=== PATIENT | female | born 1955 | race Caucasian/White ===

== ENCOUNTER 2023-10-15 11:07 | Outpatient (OUT) | payer OTHER, SELFPAY ==
[2023-10-15 12:08] LABS: Estimated Average Glucose 111 mg/dL; Glycohemoglobin A1C 5.5 % (4.5-6.2)
[2023-10-15 12:12] LABS: Basophils Absolute Auto 0.1 10^3/uL (0.0-0.1); Basophils Percent Auto 0.7 % (0.2-2.0); Eosinophils Absolute Auto 0.1 10^3/uL (0.0-0.7); Hematocrit 48.2 % (36.0-48.0); Hemoglobin 15.3 g/dL (12.0-16.0); Immature Granulocytes Abs Auto 0.02 10^3/uL (0.00-0.03); Immature Granulocytes Pct Auto 0.3 % (0.0-0.5); Lymphocytes Absolute Auto 2.4 10^3/uL (1.2-3.8); Lymphocytes Percent Auto 33.9 % (20.5-60.0); Mean Corpuscular HGB Conc 31.7 g/dL (29.9-35.2); Mean Corpuscular Hemoglobin 31.3 pg (26.7-34.0); Mean Corpuscular Volume 98.6 fL (81.0-99.0); Mean Platelet Volume 9.1 fL (9.5-13.5); Monocytes Absolute Auto 0.6 10^3/uL (0.3-0.8); Monocytes Percent Auto 8.4 % (1.7-12.0); Neutrophils Absolute Auto 3.9 10^3/uL (1.4-6.5); Neutrophils Percent Auto 54.7 % (43.0-75.0); Platelet Count 256 10^3/uL (150-450); Red Blood Count 4.89 10^6/uL (4.20-5.40); White Blood Count 7.1 10^3/uL (4.0-11.0)
[2023-10-15 12:20] LABS: Alanine Aminotransferase 31 U/L (14-59); Albumin Level 3.9 g/dL (3.4-5.0); Alkaline Phosphatase 60 U/L (46-116); Anion Gap 11.9; Aspartate Amino Transferase 16 U/L (15-37); BUN Creatinine Ratio 16.9; Bilirubin Total 0.5 mg/dL (0.2-1.0); Calcium 9.7 mg/dL (8.5-10.1); Carbon Dioxide 29.5 mmol/L (21.0-32.0); Chloride 104 mmol/L (98-107); Chol HDL Ratio 3.4; Cholesterol 187 mg/dL (<=200); Estimated GFR (African America >60 (>=60); Estimated GFR (Non-African Ame >60 (>=60); Free T3 2.96 pg/mL (2.18-3.98); Globulin 4.1 g/dL; Glucose 95 mg/dL (74-106); HDL Cholesterol 55 mg/dL (40-60); Potassium 4.4 mmol/L (3.5-5.1); Sodium 141 mmol/L (136-145); Thyroid Stimulating Hormone 1.818 uIU/mL (0.358-3.740); Triglycerides 168 mg/dL (<=150); VLDL CHOLESTEROL 33.6 mg/dL
== END 2023-10-15 11:08 | disposition home or self-care (01) ==
LOC: LAB 11:10
PROVIDERS: PCP Family Medicine; Visit Provider Family Medicine
DX: Z00.00 Encounter for general adult medical examination without abnormal findings (principal)
CPT/HCPCS: 36415; 80053; 80061; 82306; 83036; 83540; 84436; 84443; 84481; 85025

== ENCOUNTER 2023-10-22 12:14 | Outpatient (REF) | payer OTHER, SELFPAY ==
--- OUTSIDE RECORDS SUMMARY | 2023-10-22 12:24 | XMS_ITS | CCD ---
Author Name Unknown Address [address] [place] [address] Organization [facility] Care Team Providers Care Observer [employer] Name Role Phone JOSELO, DR MACK Admitting Unavailable HOY, DR MACK Attending Unavailable HOY, DR MACK Primary Care Unavailable HOY, DR MACK Consulting Unavailable SHREYAS, JONG Admitting Unavailable SHREYAS, JONG Attending Unavailable HOY, DR MACK Primary Care Unavailable HOY, DR MACK Admitting Unavailable HOY, DR MACK Attending Unavailable HOY, DR MACK Primary Care Unavailable HOY, DR MACK Consulting Unavailable HOY, DR MACK Primary Care Unavailable SHREYAS, JONG Admitting Unavailable SHREYAS, JONG Attending Unavailable WEST, DR JEWELS Angel Consulting Unavailable SHREYAS, JONG Consulting Unavailable CHADY, DR MACK Admitting Unavailable HOY, DR MACK Attending Unavailable HOY, DR MACK Primary Care Unavailable HOY, DR MACK Consulting Unavailable ZIEBER, DR AKBAR Sheikh Consulting Unavailable Problems Active Problems Problem Classification Problem Date Documented Da te Episodic/Chronic Other connective tissue disease (4 sources) Pain in left foot; Translations: [PAIN IN LEFT FOOT] Onset: 07-02-2022 Episodic Past or Other Problems Problem Classification Problem Date Documented Da te Episodic/Chronic Deficiency and other anemia (1 source) Anemia, unspecified; Translations: [ANEMIA UNSPECIFIED] Onset: 03-27-2022 Episodic Diabetes mellitus without complication (1 source) Other abnormal glucose; Translations: [OTHER ABNORMAL GLUCOSE] Onset: 03-27-2022 Episodic Other lower respiratory disease (4 sources) Pleurodynia; Translations: [PLEURODYNIA] Onset: 02-20-2022 Episodic Other screening for suspected conditions (not mental disorders or infectious disease) (1 source) Encounter for screening for malignant neoplasm of rectum; Translations: [ENC SCREEN MALIG NEOPLASM RECTUM] Onset: 03-29-2022 Episodic Results Test Name Value Interpretation Reference Range Facil ity OCC BLD IMMUNO SCREENon -0 OCCULT BLOOD Negative Normal NEGATIVE [facility] Comment on above: Performed By: #### O BSCRN #### [facility] [address] [place] [address] Dr. Enrrique Torrez CBC AUTO DIFFon 03-24-2022 BASO # 0.1 103/ul Normal 0.0-0.1 [facility] Comment on above: Performed By: #### C BC #### [facility] [address] [place] [address] Dr. Enrrique Torrez Basophils/100 WBC (Bld) 0.7 % Normal 0.2-2.0 [facility] Comment on above: Performed By: #### C BC #### [facility] [address] [place] [address] Dr. Enrrique Torrez EO # 0.2 103/ul Normal 0.0-0.7 [facility] Comment on above: Performed By: #### C BC #### [facility] [address] [place] [address] Dr. Enrrique Torrez Eosinophils/100 WBC (Bld) 2.2 % Normal 0.9-7.0 [facility] Comment on above: Performed By: #### C BC #### [facility] [address] [place] [address] Dr. Enrrique Torrez Erythrocyte distribution width (RBC) [Ratio] 13.2 % Normal 11.0-15.0 [facility] Comment on above: Performed By: #### C BC #### [facility] [address] [place] [address] Dr. Enrrique Torrez Hematocrit (Bld) [Volume fraction] 41.2 % Normal 36.0-48.0 [facility] Comment on above: Performed By: #### C BC #### [facility] [address] [place] [address] Dr. Enrrique Torrez Hemoglobin (Bld) [Mass/Vol] 13.4 g/dL Normal 12.0-16.0 [facility] Comment on above: Performed By: #### C BC #### [facility] [address] [place] [address] Dr. Enrrique Torrez IG # 0.02 10e3/ul Normal 0.00-0.03 [facility] Comment on above: Performed By: #### C BC #### [facility] [address] [place] [address] Dr. Enrrique Torrez IG % 0.3 % Normal 0.0-0.5 [facility] Comment on above: Performed By: #### C BC #### [facility] [address] [place] [address] Dr. Enrrique Torrez LYMPH # 2.0 103/ul Normal 1.2-3.8 [facility] Comment on above: Performed By: #### C BC #### [facility] [address] [place] [address] Dr. Enrrique Torrez Lymphocytes/100 WBC (Bld) 29.4 % Normal 20.5-60.0 [facility] Comment on above: Performed By: #### C BC #### [facility] [address] [place] [address] Dr. Enrrique Torrez MANUAL DIFF REQ NO Normal [facility] Comment on above: Performed By: #### C BC #### [facility] [address] [place] [address] Dr. Enrrique Torrez MCH (RBC) [Entitic mass] 31.9 pg Normal 26.7-34.0 [facility] Comment on above: Performed By: #### C BC #### [facility] [address] [place] [address] Dr. Enrrique Torrez MCHC (RBC) [Mass/Vol] 32.5 g/dL Normal 29.9-35.2 [facility] Comment on above: Performed By: #### C BC #### [facility] [address] [place] [address] Dr. Enrrique Torrez MCV (RBC) [Entitic vol] 98.1 fL Normal 81.0-99.0 [facility] Comment on above: Performed By: #### C BC #### [facility] [address] [place] [address] Dr. Enrrique Torrez MONO # 0.6 103/ul Normal 0.3-0.8 [facility] Comment on above: Performed By: #### C BC #### [facility] [address] [place] [address] Dr. Enrrique Torrez Monocytes/100 WBC (Bld) 9.1 % Normal 1.7-12.0 [facility] Comment on above: Performed By: #### C BC #### [facility] [address] [place] [address] Dr. Enrrique Torrez NEUT # 4.0 103/ul Normal 1.4-6.5 [facility] Comment on above: Performed By: #### C BC #### [facility] [address] [place] [address] Dr. Enrrique Torrez Neutrophils/100 WBC (Bld) 58.3 % Normal 43.0-75.0 [facility] Comment on above: Performed By: #### C BC #### [facility] [address] [place] [address] Dr. Enrrique Torrez Platelet mean volume (Bld) [Entitic vol] 8.7 fL Critically low 9.5-13.5 [facility] Comment on above: Performed By: #### C BC #### [facility] [address] [place] [address] Dr. Enrrique Torrez PLT 285 103/ul Normal 150-450 [facility] Comment on above: Performed By: #### C BC #### [facility] [address] [place] [address] Dr. Enrrique Torrez RBC 4.20 106/ul Normal 4.20-5.40 [facility] Comment on above: Performed By: #### C BC #### [facility] [address] [place] [address] Dr. Enrrique Torrez WBC 6.8 103/ul Normal 4.0-11.0 [facility] Comment on above: Performed By: #### C BC #### [facility] [address] [place] [address] Dr. Enrrique Torrez FREE THYROXINE INDEX T7on FTI 2.98 Normal 1.30-4.50 [facility] Comment on above: Performed By: #### L IPID, TSH, CMP, T7 #### [facility] [address] [address] [address] Enrrique Torrez T3U 32.0 % Normal 30.0-39.0 [facility] Comment on above: Performed By: #### L IPID, TSH, CMP, T7 #### [facility] [address] [address] [address] Enrrique Torrez T4 [Mass/Vol] 9.30 ug/dL Normal 4.80-13.90 [facility] Comment on above: Performed By: #### L IPID, TSH, CMP, T7 #### [facility] [address] [place] [address] Dr. Enrrique Torrez GLYCOHEMOGLOBIN A1Con 2021 ADA RECOMMENDATION SEE BELOW Normal [facility] Comment on above: Result Comment: ADA RECOMMENDED LIMIT 4.0 - 6.0 ADA THERAPEUTIC TARGET < 7.0 ACTION SUGGESTED > 7.0 Performed By: #### A 1C #### [facility] [address] [address] [address] Enrrique Torrez Glucose [Mass/Vol] 120 mg/dL Normal [facility] Comment on above: Performed By: #### A 1C #### [facility] [address] [place] [address] Dr. Enrrique Torrez HbA1c (Bld) [Mass fraction] 5.8 % Normal 4.5-6.2 [facility] Comment on above: Performed By: #### A 1C #### [facility] [address] [place] [address] Dr. Enrrique Torrez IRONon 03-24-2022 Iron [Mass/Vol] 119.0 ug/dL Normal 50.0-170.0 [facility] Comment on above: Performed By: #### I DARIA #### [facility] [address] [place] [address] Dr. Enrrique Torrez LIPID PROFILEon 03-24-2022 CHOL-HDL RATIO NORM SEE BELOW Normal [facility] Comment on above: Result Comment: 3.3 - 4.4 LOW RISK 4.4 - 7.1 AVERAGE RISK 7.1 - 11.0 MODERATE RISK >11.0 HIGH RISK Performed By: #### L IPID, TSH, CMP, T7 #### [facility] [address] [address] [address] Enrrique Torrez Cholesterol [Mass/Vol] 165 mg/dL Normal <=200 [facility] Comment on above: Performed By: #### L IPID, TSH, CMP, T7 #### [facility] [address] [address] [address] Enrrique Torrez Cholesterol in HDL [Mass/Vol] 48 mg/dL Normal 40-60 [facility] Comment on above: Performed By: #### L IPID, TSH, CMP, T7 #### [facility] [address] [address] [address] Enrrique Torrez Cholesterol in LDL [Mass/Vol] 93.2 mg/dL Normal [facility] Comment on above: Performed By: #### L IPID, TSH, CMP, T7 #### [facility] [address] [address] [address] Enrrique Torrez Cholesterol.total/Cho lesterol in HDL [Mass ratio] 3.4 {ratio} Normal [facility] Comment on above: Performed By: #### L IPID, TSH, CMP, T7 #### [facility] [address] [address] [address] Enrrique Torrez HDL NORMAL > or = 60 mg/dl - LOW CARDIOVASCULAR RISK <40 mg/dl - HIGH CARDIOVASCULAR RISK Normal [facility] Comment on above: Performed By: #### L IPID, TSH, CMP, T7 #### [facility] [address] [address] [address] Enrrique Torrez LDL CALC NORMAL SEE BELOW Normal [facility] Comment on above: Result Comment: <100 mg/dl OPTIMAL 100 - 129 mg/dl NEAR OR ABOVE OPTIMAL 130 - 159 mg/dl BORDERLINE HIGH 160 - 189 mg/dl HIGH >190 mg/dl VERY HIGH Performed By: #### L IPID, TSH, CMP, T7 #### [facility] [address] [address] [address] Enrrique Torrez Triglyceride [Mass/Vol] 119 mg/dL Normal <=150 [facility] Comment on above: Performed By: #### L IPID, TSH, CMP, T7 #### [facility] [address] [address] [address] Enrrique Torrez VLDL CALC 23.8 mg/dL Normal [facility] Comment on above: Performed By: #### L IPID, TSH, CMP, T7 #### [facility] [address] [address] [address] Enrrique Torrez PROF 14(COMP METB)on 022 Albumin [Mass/Vol] 3.6 g/dL Normal 3.4-5.0 [facility] Comment on above: Performed By: #### L IPID, TSH, CMP, T7 #### [facility] [address] [address] [address] Enrrique Torrez Albumin/Globulin [Mass ratio] 0.9 {ratio} Normal [facility] Comment on above: Performed By: #### L IPID, TSH, CMP, T7 #### [facility] [address] [address] [address] Enrrique Torrez ALP [Catalytic activity/Vol] 66 U/L Normal 46-116 [facility] Comment on above: Performed By: #### L IPID, TSH, CMP, T7 #### [facility] [address] [address] [address] Enrrique Torrez ALT [Catalytic activity/Vol] 30 U/L Normal 14-59 [facility] Comment on above: Performed By: #### L IPID, TSH, CMP, T7 #### [facility] [address] [address] [address] Enrrique Torrez Anion gap [Moles/Vol] 14.4 mmol/L Normal [facility] Comment on above: Performed By: #### L IPID, TSH, CMP, T7 #### [facility] [address] [address] [address] Enrrique Torrez AST [Catalytic activity/Vol] 21 U/L Normal 15-37 [facility] Comment on above: Performed By: #### L IPID, TSH, CMP, T7 #### [facility] [address] [address] [address] Enrrique Torrez Bilirubin [Mass/Vol] 0.4 mg/dL Normal 0.2-1.0 [facility] Comment on above: Performed By: #### L IPID, TSH, CMP, T7 #### [facility] [address] [address] [address] Enrrique Torrez Calcium [Mass/Vol] 9.2 mg/dL Normal 8.5-10.1 [facility] Comment on above: Performed By: #### L IPID, TSH, CMP, T7 #### [facility] [address] [place] [address] Dr. Enrrique Torrez Chloride [Moles/Vol] 106 mmol/L Normal 98-107 [facility] Comment on above: Performed By: #### L IPID, TSH, CMP, T7 #### [facility] [address] [address] [address] Enrrique Torrez CO2 [Moles/Vol] 26.4 mmol/L Normal 21.0-32.0 [facility] Comment on above: Performed By: #### L IPID, TSH, CMP, T7 #### [facility] [address] [place] [address] Dr. Enrrique Torrez Creatinine [Mass/Vol] 0.88 mg/dL Normal 0.55-1.02 [facility] Comment on above: Performed By: #### L IPID, TSH, CMP, T7 #### [facility] [address] [place] [address] Dr. Enrrique Torrez EGFR-AF UKRAINIAN >60 Normal >=60 [facility] Comment on above: Performed By: #### L IPID, TSH, CMP, T7 #### [facility] [address] [place] [address] Dr. Enrrique Torrez EGFR-NON AF UKRAINIAN >60 Normal >=60 [facility] Comment on above: Performed By: #### L IPID, TSH, CMP, T7 #### [facility] [address] [address] [address] Enrrique Torrez Globulin (S) [Mass/Vol] 3.8 g/dL Normal [facility] Comment on above: Performed By: #### L IPID, TSH, CMP, T7 #### [facility] [address] [address] [address] Enrrique Torrez Glucose [Mass/Vol] 108 mg/dL Critically high 74-[address] [facility] Comment on above: Performed By: #### L IPID, TSH, CMP, T7 #### [facility] [address] [address] [address] Enrrique Torrez Potassium [Moles/Vol] 4.8 mmol/L Normal 3.5-5.1 [facility] Comment on above: Performed By: #### L IPID, TSH, CMP, T7 #### [facility] [address] [place] [address] Dr. Enrrique Torrez Protein [Mass/Vol] 7.4 g/dL Normal 6.4-8.2 [facility] Comment on above: Performed By: #### L IPID, TSH, CMP, T7 #### [facility] [address] [address] [address] Enrrique Torrez Sodium [Moles/Vol] 142 mmol/L Normal 136-145 [facility] Comment on above: Performed By: #### L IPID, TSH, CMP, T7 #### [facility] [address] [address] [address] Enrrique Torrez Urea nitrogen [Mass/Vol] 17.0 mg/dL Normal 7.0-18.0 [facility] Comment on above: Performed By: #### L IPID, TSH, CMP, T7 #### [facility] [address] [place] [address] Dr. Enrrique Torrez Urea nitrogen/Creatinine [Mass ratio] 19.3 mg/mg Normal [facility] Comment on above: Performed By: #### L IPID, TSH, CMP, T7 #### [facility] [address] [address] [address] Enrrique Torrez TSHon 03-24-2022 TSH 0.863 uIU/mL Normal 0.358-3.740 [facility] Comment on above: Performed By: #### L IPID, TSH, CMP, T7 #### [facility] [address] [address] [address] Enrrique Torrez XR RIBS RT NO CH 2Von 2021 XR RIBS RT NO CH 2V EXAMINATION: XR RIBS RT NO CH 2V HISTORY: Rib pain ; acute right lateral rib pain since falling 4 days ago COMPARISON: No relevant comparison available. FINDINGS: RIBS: No appreciable fracture. LUNGS: Slight blunting of the right and left costophrenic angle; lack of lung expansion versus trace amount of pleural fluid bilaterally. OTHER: Negative. IMPRESSION: 1. No appreciable rib fracture. 2. Suspect trace amount of pleural fluid or basilar atelectasis within the costophrenic angles bilaterally. Electronically authenticated by: AKBAR AMARAL Date: 2022-02-20 18:14 Normal [facility] Encounters Encounter Date Encounter Type Care Provider Facility Start: 08-04-2022 ambulatory JONG Lorenz y:[facility] Start: 07-02-2022 End: 07-03-[address] FREDERICK JOSUE Facility:[facility] Start: 03-29-2022 Encounter for genera l adult medical examination without abnormal findings DR FREDERICK JOSUE [facility] Start: 03-25-2022 End: 03-25-[address] FREDERICK JOSUE Facility:[facility] Start: 03-25-2022 End: 03-25-2022 Encounter for general adult medical examination without abnormal findings DR FREDERICK JOSUE Facility:[facility] Start: 03-24-2022 End: 03-25-[address] FREDERICK JOSUE Facility:[facility] Start: 02-20-2022 End: 02-21-[address] FREDERICK JOSUE Facility:[facility] Payers Date Payer Category Payer Private Health Insurance [facility] [id number] 1955 Unknown [id number] 2.16.84 [id number] 1955 Unknown [id number] 2.16.84 [id number] 1955 Unknown [id number] 2.16.84 [id number] 1955 Unknown [id number] 2.16.84 [id number] 1955 Unknown [id number] 2.16.84 [id number] Clinical Note 07-02-2022 Note Date & Type Note Facility 07-02-2022 Note PROCEDURE: XR FOOT L T MIN 3 VIEWS COMPARISON: None. HISTORY: Pain in left foot FINDINGS: BONES:No acute fracture or dislocation. Mild to moderate plantar enthesopathic spurring of the calcaneus. Mild degenerative changes SOFT TISSUES:Negative. No visible soft tissue swelling. EFFUSION:None visible. OTHER: Negative. IMPRESSION: Mild degenerative changes Electronically authenticated by: JEWELS NAGEL Date: 2022-07-02 18:46 [facility] Summary Purpose Family History No Family History Records Found Advance Directives No Advanced Directives Records Found Additional Source Comments INFORMATION SOURCE (unrecogn ized section and content) DATE CREATED AUTHOR 08/11/[address] [facility] FOR RECORDS PERTAINING TO PATIENTS WHO ARE OR HAVE BEEN ENROLLED IN A CHEMICAL DEPENDENCY/SUBSTANCEABUSE PROGRAM, SOME INFORMATION MAY BE OMITTED. This clinical summary was aggregated from multiple sources. Caution should be exercised in using it in the provision of clinical care. This summary normalizes information from multiple sources, and as a consequence, information in this document may materially change the coding, format and clinical context of patient data. In addition, data may be omitted in some cases. CLINICAL DECISIONS SHOULD BE BASED ON THE PRIMARY CLINICAL RECORDS. [facility]. provides no warranty or guarantee of the accuracy or completeness of information in this document.
== END 2023-10-22 12:15 | disposition home or self-care (01) ==
LOC: LAB 12:14
PROVIDERS: PCP Family Medicine; Visit Provider Family Medicine
DX: Z12.12 Encounter for screening for malignant neoplasm of rectum (principal)
CPT/HCPCS: G0328

== ENCOUNTER 2023-11-16 10:26 | Outpatient (OUT) | payer OTHER, SELFPAY ==
--- NOTE | 2023-11-16 10:31 | MM_ITS ---
Patient Name: FABIAN TEJEDA MR#: [id number] : 1955 Exam Date: 11/16/2023 Ordering Doctor: DR Riley Posada . RADIOLOGY REPORT PROCEDURE: MM TOMOSYNTHESIS SCREENING BI COMPARISON: MG MAMM LOLA SCRN W CAD DIG, 06/08/2013. INDICATIONS: screening Calculator Name NCI Breast Cancer Risk Assessment Tool 5 Year Breast Cancer Risk 1.20% Lifetime Breast Cancer Risk 3.70% Personal Breast Cancer No Personal Ovarian Cancer No Treatments None Family Cancers Mother with throat, brain cancer at age 64. LOCATION: [facility] BREAST COMPOSITION: Scattered areas fibroglandular density. FINDINGS: DIAGNOSTIC CATEGORY 1--NEGATIVE. NO CHANGE FROM COMPARISON ASSESSMENT. Scattered benign-appearing calcifications are present. Scattered benign-appearing lymph nodes are present. RIGHT BREAST: No significant suspicious finding. LEFT BREAST: No significant suspicious finding. RECOMMENDATIONS: ROUTINE MAMMOGRAM AND CLINICAL EVALUATION IN 12 MONTHS. PLEASE NOTE: A NORMAL MAMMOGRAM DOES NOT EXCLUDE THE POSSIBILITY OF BREAST CANCER. A CLINICALLY SUSPICIOUS PALPABLE LUMP SHOULD BE BIOPSIED. Dictated by: Dylan Moise MD on 11/16/2023 at 12:33 Approved by: Dylan Moise MD on 11/16/2023 at 12:34
--- NOTE | 2023-11-16 10:31 | CT_ITS ---
[address] [address] Patient Name: FABIAN TEEJDA MRN: [id number] date: 1955 Sex: F Assigned Patient Location: CT Current Patient Location: CT Accession/Order Number: [id number] Exam Date: 11/16/2023 10:38 Report Date: 11/16/2023 12:50 At the request of: FREDERICK JOSUE Procedure: CT lung screening low-dose EXAMINATION: CT lung screening low-dose HISTORY: smoker F17.200 COMPARISON: No relevant comparison available. TECHNIQUE: Axial, Coronal, and Sagittal images were created without the administration of IV contrast material. Dose reduction techniques were achieved by using automated exposure control and/or adjustment of mA and/or kV according to patient size and/or use of iterative reconstruction technique. FINDINGS: LUNGS: 6.6 mm solid noncalcified pulmonary nodule left lower lobe axial image 101. PLEURA: No mass, effusion, or pneumothorax. VASCULATURE: No abnormality. VIRIDIANA: No mass or pathologic adenopathy. MEDIASTINUM: No mass or pathologic adenopathy. CARDIAC: No enlargement or pericardial effusion. Mild coronary atherosclerosis CORONARY ARTERIES: AORTA: No aortic aneurysm. Mild atherosclerosis CHEST WALL: No mass or axillary adenopathy BONES: No bone lesion or fracture. Moderate diffuse degenerative changes LIMITED ABDOMEN: Moderate sized sliding-type hiatal hernia OTHER: Negative. CT/CT lung screening low-dose IMPRESSION: 6.6 mm solid left lower lobe nodule, indeterminate LUNG SCREENING: Lung-RADS Category 3- Probably benign. Probably benign finding(s)- short term follow up suggested; includes nodules with a low likelihood of becoming a clinically active cancer. Six month LDCT. Electronically authenticated by: JEWELS NAGEL Date: 11/16/2023 12:50
--- OUTSIDE RECORDS SUMMARY | 2023-11-16 10:33 | XMS_ITS | CCD ---
Author Name Unknown Address [address] [place] [address] Organization [facility] Care Team Providers Care Facilities And Grounds Director Name Role Phone JOSELO, DR MACK Admitting [...] SCREENon -0 OCCULT BLOOD Negative Normal NEGATIVE [facility] Comment on above: Performed By: #### O BSCRN #### [facility] [address] [place] [address] Dr. Enrrique Torrez CBC AUTO DIFFon 03-24-2022 BASO # 0.1 103/ul Normal 0.0-0.1 [facility] Comment on above: Performed By: #### C BC #### [facility] [address] [place] [address] Dr. Enrrique Torrez Basophils/100 WBC (Bld) 0.7 % Normal 0.2-2.0 [facility] Comment on above: Performed By: #### C BC #### [facility] [address] [place] [address] Dr. Enrrique Torrez EO # 0.2 103/ul Normal 0.0-0.7 [facility] Comment on above: Performed By: #### C BC #### [facility] [address] [place] [address] Dr. Enrrique Torrez Eosinophils/100 WBC (Bld) 2.2 % Normal 0.9-7.0 [facility] Comment on above: Performed By: #### C BC #### [facility] [address] [place] [address] Dr. Enrrique Torrez Erythrocyte distribution width (RBC) [Ratio] 13.2 % Normal 11.0-15.0 [facility] Comment on above: Performed By: #### C BC #### [facility] [address] [place] [address] Dr. Enrrique Torrez Hematocrit (Bld) [Volume fraction] 41.2 % Normal 36.0-48.0 [facility] Comment on above: Performed By: #### C BC #### [facility] [address] [place] [address] Dr. Enrrique Torrez Hemoglobin (Bld) [Mass/Vol] 13.4 g/dL Normal 12.0-16.0 [facility] Comment on above: Performed By: #### C BC #### [facility] [address] [place] [address] Dr. Enrrique Torrez IG # 0.02 10e3/ul Normal 0.00-0.03 [facility] Comment on above: Performed By: #### C BC #### [facility] [address] [place] [address] Dr. Enrrique Torrez IG % 0.3 % Normal 0.0-0.5 [facility] Comment on above: Performed By: #### C BC #### [facility] [address] [place] [address] Dr. Enrrique Torrez LYMPH # 2.0 103/ul Normal 1.2-3.8 [facility] Comment on above: Performed By: #### C BC #### [facility] [address] [place] [address] Dr. Enrrique Torrez Lymphocytes/100 WBC (Bld) 29.4 % Normal 20.5-60.0 [facility] Comment on above: Performed By: #### C BC #### [facility] [address] [place] [address] Dr. Enrrique Torrez MANUAL DIFF REQ NO Normal [facility] Comment on above: Performed By: #### C BC #### [facility] [address] [place] [address] Dr. Enrrique Torrez MCH (RBC) [Entitic mass] 31.9 pg Normal 26.7-34.0 [facility] Comment on above: Performed By: #### C BC #### [facility] [address] [place] [address] Dr. Enrrique Torrez MCHC (RBC) [Mass/Vol] 32.5 g/dL Normal 29.9-35.2 [facility] Comment on above: Performed By: #### C BC #### [facility] [address] [place] [address] Dr. Enrrique Torrez MCV (RBC) [Entitic vol] 98.1 fL Normal 81.0-99.0 [facility] Comment on above: Performed By: #### C BC #### [facility] [address] [place] [address] Dr. Enrrique Torrez MONO # 0.6 103/ul Normal 0.3-0.8 [facility] Comment on above: Performed By: #### C BC #### [facility] [address] [place] [address] Dr. Enrrique Torrez Monocytes/100 WBC (Bld) 9.1 % Normal 1.7-12.0 [facility] Comment on above: Performed By: #### C BC #### [facility] [address] [place] [address] Dr. Enrrique Torrez NEUT # 4.0 103/ul Normal 1.4-6.5 [facility] Comment on above: Performed By: #### C BC #### [facility] [address] [place] [address] Dr. Enrrique Torrez Neutrophils/100 WBC (Bld) 58.3 % Normal 43.0-75.0 [facility] Comment on above: Performed By: #### C BC #### [facility] [address] [place] [address] Dr. Enrrique Torrez Platelet mean volume (Bld) [Entitic vol] 8.7 fL Critically low 9.5-13.5 [facility] Comment on above: Performed By: #### C BC #### [facility] [address] [place] [address] Dr. Enrrique Torrez PLT 285 103/ul Normal 150-450 [facility] Comment on above: Performed By: #### C BC #### [facility] [address] [place] [address] Dr. Enrrique Torrez RBC 4.20 106/ul Normal 4.20-5.40 [facility] Comment on above: Performed By: #### C BC #### [facility] [address] [place] [address] Dr. Enrrique Torrez WBC 6.8 103/ul Normal 4.0-11.0 [facility] Comment on above: Performed By: #### C BC #### [facility] [address] [place] [address] Dr. Enrrique Torrez FREE THYROXINE INDEX T7on FTI 2.98 Normal 1.30-4.50 [facility] Comment on above: Performed By: #### L IPID, TSH, CMP, T7 #### [facility] [address] [address] [address] Enrrique Torrez T3U 32.0 % Normal 30.0-39.0 [facility] Comment on above: Performed By: #### L IPID, TSH, CMP, T7 #### [facility] [address] [address] [address] Enrrique Torrez T4 [Mass/Vol] 9.30 ug/dL Normal 4.80-13.90 [facility] Comment on above: Performed By: #### L IPID, TSH, CMP, T7 #### [facility] [address] [place] [address] Dr. Enrrique Torrez GLYCOHEMOGLOBIN A1Con 2021 ADA RECOMMENDATION SEE BELOW Normal [facility] Comment on above: Result Comment: ADA RECOMMENDED LIMIT 4.0 - 6.0 ADA THERAPEUTIC TARGET < 7.0 ACTION SUGGESTED > 7.0 Performed By: #### A 1C #### [facility] [address] [address] [address] Enrrique Torrez Glucose [Mass/Vol] 120 mg/dL Normal [facility] Comment on above: Performed By: #### A 1C #### [facility] [address] [place] [address] Dr. Enrrique Torrez HbA1c (Bld) [Mass fraction] 5.8 % Normal 4.5-6.2 [facility] Comment on above: Performed By: #### A 1C #### [facility] [address] [place] [address] Dr. Enrrique Torrez IRONon 03-24-2022 Iron [Mass/Vol] 119.0 ug/dL Normal 50.0-170.0 [facility] Comment on above: Performed By: #### I DARIA #### [facility] [address] [place] [address] Dr. Enrrique Torrez LIPID PROFILEon 03-24-2022 CHOL-HDL RATIO NORM SEE BELOW Normal [facility] Comment on above: Result Comment: 3.3 - 4.4 LOW RISK 4.4 - 7.1 AVERAGE RISK 7.1 - 11.0 MODERATE RISK >11.0 HIGH RISK Performed By: #### L IPID, TSH, CMP, T7 #### [facility] [address] [address] [address] Enrrique Torrez Cholesterol [Mass/Vol] 165 mg/dL Normal <=200 [facility] Comment on above: Performed By: #### L IPID, TSH, CMP, T7 #### [facility] [address] [address] [address] Enrrique Torrez Cholesterol in HDL [Mass/Vol] 48 mg/dL Normal 40-60 [facility] Comment on above: Performed By: #### L IPID, TSH, CMP, T7 #### [facility] [address] [address] [address] Enrrique Torrez Cholesterol in LDL [Mass/Vol] 93.2 mg/dL Normal [facility] Comment on above: Performed By: #### L IPID, TSH, CMP, T7 #### [facility] [address] [address] [address] Enrrique Torrez Cholesterol.total/Cho lesterol in HDL [Mass ratio] 3.4 {ratio} Normal [facility] Comment on above: Performed By: #### L IPID, TSH, CMP, T7 #### [facility] [address] [address] [address] Enrrique Torrez HDL NORMAL > or = 60 mg/dl - LOW CARDIOVASCULAR RISK <40 mg/dl - HIGH CARDIOVASCULAR RISK Normal [facility] Comment on above: Performed By: #### L IPID, TSH, CMP, T7 #### [facility] [address] [address] [address] Enrrique Torrez LDL CALC NORMAL SEE BELOW Normal [facility] Comment on above: Result Comment: <100 mg/dl OPTIMAL 100 - 129 mg/dl NEAR OR ABOVE OPTIMAL 130 - 159 mg/dl BORDERLINE HIGH 160 - 189 mg/dl HIGH >190 mg/dl VERY HIGH Performed By: #### L IPID, TSH, CMP, T7 #### [facility] [address] [address] [address] Enrrique Torrez Triglyceride [Mass/Vol] 119 mg/dL Normal <=150 [facility] Comment on above: Performed By: #### L IPID, TSH, CMP, T7 #### [facility] [address] [address] [address] Enrrique Torrez VLDL CALC 23.8 mg/dL Normal [facility] Comment on above: Performed By: #### L IPID, TSH, CMP, T7 #### [facility] [address] [address] [address] Enrrique Torrez PROF 14(COMP METB)on 022 Albumin [Mass/Vol] 3.6 g/dL Normal 3.4-5.0 [facility] Comment on above: Performed By: #### L IPID, TSH, CMP, T7 #### [facility] [address] [address] [address] Enrrique Torrez Albumin/Globulin [Mass ratio] 0.9 {ratio} Normal [facility] Comment on above: Performed By: #### L IPID, TSH, CMP, T7 #### [facility] [address] [address] [address] Enrrique Torrez ALP [Catalytic activity/Vol] 66 U/L Normal 46-116 [facility] Comment on above: Performed By: #### L IPID, TSH, CMP, T7 #### [facility] [address] [address] [address] Enrrique Torrez ALT [Catalytic activity/Vol] 30 U/L Normal 14-59 [facility] Comment on above: Performed By: #### L IPID, TSH, CMP, T7 #### [facility] [address] [address] [address] Enrrique Torrez Anion gap [Moles/Vol] 14.4 mmol/L Normal [facility] Comment on above: Performed By: #### L IPID, TSH, CMP, T7 #### [facility] [address] [address] [address] Enrrique Torrez AST [Catalytic activity/Vol] 21 U/L Normal 15-37 [facility] Comment on above: Performed By: #### L IPID, TSH, CMP, T7 #### [facility] [address] [address] [address] Enrrique Torrez Bilirubin [Mass/Vol] 0.4 mg/dL Normal 0.2-1.0 [facility] Comment on above: Performed By: #### L IPID, TSH, CMP, T7 #### [facility] [address] [address] [address] Enrrique Torrez Calcium [Mass/Vol] 9.2 mg/dL Normal 8.5-10.1 [facility] Comment on above: Performed By: #### L IPID, TSH, CMP, T7 #### [facility] [address] [place] [address] Dr. Enrrique Torrez Chloride [Moles/Vol] 106 mmol/L Normal 98-107 [facility] Comment on above: Performed By: #### L IPID, TSH, CMP, T7 #### [facility] [address] [address] [address] Enrrique Torrez CO2 [Moles/Vol] 26.4 mmol/L Normal 21.0-32.0 [facility] Comment on above: Performed By: #### L IPID, TSH, CMP, T7 #### [facility] [address] [place] [address] Dr. Enrrique Torrez Creatinine [Mass/Vol] 0.88 mg/dL Normal 0.55-1.02 [facility] Comment on above: Performed By: #### L IPID, TSH, CMP, T7 #### [facility] [address] [place] [address] Dr. Enrrique Torrez EGFR-AF COLOMBIAN >60 Normal >=60 [facility] Comment on above: Performed By: #### L IPID, TSH, CMP, T7 #### [facility] [address] [place] [address] Dr. Enrrique Torrez EGFR-NON AF COLOMBIAN >60 Normal >=60 [facility] Comment on above: Performed By: #### L IPID, TSH, CMP, T7 #### [facility] [address] [address] [address] Enrrique Torrez Globulin (S) [Mass/Vol] 3.8 g/dL Normal [facility] Comment on above: Performed By: #### L IPID, TSH, CMP, T7 #### [facility] [address] [address] [address] Enrrique Torrez Glucose [Mass/Vol] 108 mg/dL Critically high 74-106 [facility] Comment on above: Performed By: #### L IPID, TSH, CMP, T7 #### [facility] [address] [address] [address] Enrrique Torrez Potassium [Moles/Vol] 4.8 mmol/L Normal 3.5-5.1 [facility] Comment on above: Performed By: #### L IPID, TSH, CMP, T7 #### [facility] [address] [place] [address] Dr. Enrrique Torrez Protein [Mass/Vol] 7.4 g/dL Normal 6.4-8.2 [facility] Comment on above: Performed By: #### L IPID, TSH, CMP, T7 #### [facility] [address] [address] [address] Enrrique Torrez Sodium [Moles/Vol] 142 mmol/L Normal 136-145 [facility] Comment on above: Performed By: #### L IPID, TSH, CMP, T7 #### [facility] [address] [address] [address] Enrrique Torrez Urea nitrogen [Mass/Vol] 17.0 mg/dL Normal 7.0-18.0 [facility] Comment on above: Performed By: #### L IPID, TSH, CMP, T7 #### [facility] [address] [place] [address] Dr. Enrrique Torrez Urea nitrogen/Creatinine [Mass ratio] 19.3 mg/mg Normal [facility] Comment on above: Performed By: #### L IPID, TSH, CMP, T7 #### [facility] [address] [address] [address] Enrrique Torrez TSHon 03-24-2022 TSH 0.863 uIU/mL Normal 0.358-3.740 [facility] Comment on above: Performed By: #### L IPID, TSH, CMP, T7 #### [facility] [address] [address] [address] Enrrique Torrez XR RIBS RT NO [...] AKBAR AMARAL Date: 2022-02-20 18:14 Normal [facility] Encounters Encounter Date Encounter Type Care Provider Facility Start: 08-04-2022 ambulatory JONG Lorenz y:[facility] Start: 07-02-2022 End: 07-03-[address] FREDERICK JOSUE Facility:[facility] Start: 03-29-2022 Encounter for genera l adult medical examination without abnormal findings DR FREDERICK JOSUE [facility] Start: 03-25-2022 End: 03-25-[address] FREDERICK JOSUE Facility:[facility] Start: 03-25-2022 End: 03-25-2022 Encounter for general adult medical examination without abnormal findings DR FREDERICK JOSUE Facility:[facility] Start: 03-24-2022 End: 03-25-[address] FREDERICK JOSUE Facility:[facility] Start: 02-20-2022 End: 02-21-[address] FREDERICK JOSUE Facility:[facility] Payers Date Payer Category Payer Private Health Insurance [facility] [id number] 1955 Unknown [id number] [id number] [id number] 1955 Unknown [id number] [id number] [id number] 1955 Unknown [id number] [id number] [id number] 1955 Unknown [id number] [id number] [id number] 1955 Unknown [id number] 2.16.84 [id number] Clinical Note 07-02-2022 Note Date & Type Note Facility 07-02-2022 Note PROCEDURE: XR FOOT L T MIN 3 VIEWS COMPARISON: None. HISTORY: Pain in left foot FINDINGS: BONES:No acute fracture or dislocation. Mild to moderate plantar enthesopathic spurring of the calcaneus. Mild degenerative changes SOFT TISSUES:Negative. No visible soft tissue swelling. EFFUSION:None visible. OTHER: Negative. IMPRESSION: Mild degenerative changes Electronically authenticated by: JEWELS ANGEL Date: 2022-07-02 18:46 [facility] Summary Purpose Family History No Family History Records Found Advance Directives No Advanced Directives Records Found Additional Source Comments INFORMATION SOURCE (unrecogn ized section and content) DATE CREATED AUTHOR 08/11/2022 The [facility] FOR RECORDS PERTAINING TO PATIENTS WHO ARE [...] BE BASED ON THE PRIMARY CLINICAL RECORDS. [employer] [facility]. provides no warranty or guarantee of the accuracy or completeness of information in this document.
== END 2023-11-16 10:27 | disposition home or self-care (01) ==
LOC: CT 10:26
PROVIDERS: PCP Family Medicine; Visit Provider Family Medicine
DX: R91.1 Solitary pulmonary nodule (principal); F17.200 Nicotine dependence, unspecified, uncomplicated; J44.9 Chronic obstructive pulmonary disease, unspecified; Z12.31 Encounter for screening mammogram for malignant neoplasm of breast; Z80.8 Family history of malignant neoplasm of other organs or systems
CPT/HCPCS: 71271; 77063; 77067

== ENCOUNTER 2023-11-18 13:07 | Emergency (ER) | payer OTHER, SELFPAY ==
[2023-11-18 13:11] VITALS: BP 86/61; PULSE 62; RESP 18; O2SAT 96; BMI 28.2
--- NOTE | 2023-11-18 13:19 | XR_ITS ---
The [address] [address] Patient Name: FABIAN TEJEDA MRN: [id number] date: 1955 Sex: F Assigned Patient Location: ER Current Patient Location: ED.MAIN Accession/Order Number: [id number] Exam Date: 11/18/2023 13:40 Report Date: 11/18/2023 13:57 At the request of: ZHAO MARTINES Procedure: XR chest 1V EXAM: XR chest 1V HISTORY: Vomiting COMPARISON: None. TECHNIQUE: AP view of the chest. FINDINGS: The cardiomediastinal silhouette is normal. The lungs are clear. There is no pneumothorax. No pleural effusion is noted. The osseous structures are intact. XR/XR chest 1V IMPRESSION: No acute cardiopulmonary process. Electronically authenticated by: PRATEEK GARCIA Date: 11/18/2023 13:57
--- NOTE | 2023-11-18 13:20 | ED.GENADUL1 ---
HPI - General Adult General Chief complaint: Nausea/Vomiting/Diarrhea Stated complaint: NASEAU, VOMITING Time Seen by Provider: 11/18/23 13:17 Source: patient Mode of arrival: ambulance History of Present Illness HPI narrative: Patient is a 68-year-old female brought to the emergency department by ambulance for not feeling well immediately prior to arrival. She was driving her car when she had an onset of general feeling of body aches and weakness and had 3 episodes of emesis prior to arrival. She called 911 immediately and EMS found her laying in her backseat, she has no pain, recent illness, fevers. No diarrhea. She denies chest pain, shortness of breath, syncope. At time of my evaluation, she is fixated on getting a blanket. She states she feels very chilled. Related Data Previous Rx's Medication Instructions Recorded promethazine 25 mg tablet 25 mg PO Q6H PRN nausea and 11/18/23 vomiting #12 tabs Allergies Allergy/AdvReac Type Severity Reaction Status Date / Time No Known Drug Allergies Allergy Verified 11/18/23 13:18 Review of Systems ROS Constitutional Reports: chills; Denies: fever Ears, nose, mouth, and throat Denies: throat pain or nasal congestion Cardiovascular Denies: chest pain Respiratory Denies: shortness of breath or cough Gastrointestinal Reports: nausea and vomiting; Denies: abdominal pain or diarrhea Genitourinary Denies: painful urination Musculoskeletal Denies: back pain or neck pain Integumentary/Breast Denies: rash Neurological Denies: headache Hematologic/Lymphatic Denies: easy bruising or easy bleeding Exam Narrative Exam Narrative: Gen.: Awake, alert, in no distress Head: Normocephalic, atraumatic ENT: Moist mucous membranes Respiratory: No respiratory distress, lungs clear bilaterally Cardio: Regular rate and rhythm Gastrointestinal: Abdomen is soft, nondistended and nontender to palpation Extremities: Moves extremities equally Psych: Normal mood and affect Neuro: No focal neuro deficit Skin: Warm, dry, intact Constitutional Vital Signs, click to edit/add: Last Vital Signs Temp 97.3 F L 11/18/23 15:32 Pulse 79 11/18/23 15:03 Resp 18 11/18/23 15:03 BP 118/60 11/18/23 15:03 Pulse Ox 97 11/18/23 15:03 O2 Del Method Room Air 11/18/23 13:11 Course Vital Signs Vital signs: Vital Signs Pulse Rate 62 11/18/23 13:11 Respiratory Rate 18 11/18/23 13:11 Blood Pressure 86/61 L 11/18/23 13:11 Pulse Oximetry 96 11/18/23 13:11 Oxygen Delivery Method Room Air 11/18/23 13:11 Temperature 97.3 F L 11/18/23 15:32 Pulse Rate 79 11/18/23 15:03 Respiratory Rate 18 11/18/23 15:03 Blood Pressure 118/60 11/18/23 15:03 Pulse Oximetry 97 11/18/23 15:03 Oxygen Delivery Method Room Air 11/18/23 13:11 Medical Decision Making MDM Narrative Medical decision making narrative: Patient was hypotensive on arrival to the ER, she was given 2 L of IV fluids that were warmed as we had difficulty obtaining an oral temperature. Patient adamantly denied a rectal temperature. She was able to Ambulate in the emergency department to the bathroom. Her labs show she is dehydrated. After warmed blankets and 2 L of IV fluids, patient has an oral temperature of 97.3 Fahrenheit. It was strongly recommended that the patient come into the hospital for admission for cardiac monitoring and fluids. A lengthy discussion was had with the patient by attending physician. She was made aware of the risks of possible arrhythmias, worsening symptoms. She would like to follow-up with her doctor and adamantly refused admission. Dr. Poasda was contacted by attending physician to make them aware of this for follow-up in the office. Patient will be discharged home on Phenergan for nausea as needed. Follow-up with PCP and return to the ER if symptoms change or worsen. Medical Records Medical records reviewed: Yes I reviewed the patient's medical records Lab Data Lab results reviewed: Yes I reviewed the patient's lab results Labs: Lab Results 11/18/23 11/18/23 11/18/23 Range/Units 13:36 13:53 15:40 WBC 10.9 (4.0-11.0) 10^3/uL RBC 4.44 (4.20-5.40) 10^6/uL Hgb 14.2 (12.0-16.0) g/dL Hct 43.1 (36.0-48.0) % MCV 97.1 (81.0-99.0) fL MCH 32.0 (26.7-34.0) pg MCHC 32.9 (29.9-35.2) g/dL RDW 13.1 (11.0-15.0) % Plt Count 239 (150-450) 10^3/uL MPV 9.0 L (9.5-13.5) fL Neut % (Auto) 78.8 H (43.0-75.0) % Lymph % (Auto) 15.0 L (20.5-60.0) % [place] % (Auto) 5.3 (1.7-12.0) % Eos % (Auto) 0.4 L (0.9-7.0) % Baso % (Auto) 0.2 (0.2-2.0) % Neut # (Auto) 8.6 H (1.4-6.5) 10^3/uL Lymph # (Auto) 1.6 (1.2-3.8) 10^3/uL [place] # (Auto) 0.6 (0.3-0.8) 10^3/uL Eos # (Auto) 0.0 (0.0-0.7) 10^3/uL Baso # (Auto) 0.0 (0.0-0.1) 10^3/uL Abs Immat Gran (auto) 0.03 (0.00-0.03) 10^3/uL Imm/Tot Granulo (auto) 0.3 (0.0-0.5) % PT 10.4 (9.0-11.6) sec INR 0.98 Sodium 142 (136-145) mmol/L Potassium 3.6 (3.5-5.1) mmol/L Chloride 105 (98-107) mmol/L Carbon Dioxide 23.8 (21.0-32.0) mmol/L Anion Gap 16.8 BUN 19.0 H (7.0-18.0) mg/dL Creatinine 1.22 H (0.55-1.02) mg/dL Est GFR ( Amer) 53 L (>=60) Est GFR (Non-Af Amer) 44 L (>=60) BUN/Creatinine Ratio 15.6 Glucose 183 H (74-106) mg/dL Lactate 2.0 (0.4-2.0) mmol/L Calcium 8.9 (8.5-10.1) mg/dL Total Bilirubin 0.4 (0.2-1.0) mg/dL AST 17 (15-37) U/L ALT 29 (14-59) U/L Alkaline Phosphatase 55 (46-116) U/L Troponin I High Sens <4.0 L (4.0-51.3) pg/mL Total Protein 6.8 (6.4-8.2) g/dL Albumin 3.4 (3.4-5.0) g/dL Globulin 3.4 g/dL Albumin/Globulin Ratio 1.0 Urine Color Dk. yellow (YELLOW) Urine Clarity Cloudy A (CLEAR) Urine pH 5.5 (5.0-9.0) Ur Specific [place] >=1.030 A (1.005-1.025) Urine Protein >=300 A (NEG/TRACE) mg/dL Urine Glucose (UA) Negative (NEGATIVE) mg/dL Urine Ketones Negative (NEGATIVE) mg/dL Urine Occult Blood Trace-i (NEGATIVE) Urine Nitrite Negative (NEGATIVE) Urine Bilirubin Small A (NEGATIVE) Urine Urobilinogen 0.2 (0.2-1.0) EU/dL Ur Leukocyte Esterase Negative (NEGATIVE) Urine RBC 2-5 A (0-2) #/HPF Urine WBC 2-5 A (NONE SEEN) #/HPF Ur Squamous Epith Cells Few A (NONE/RARE) #/LPF Urine Crystals Seen A (None Seen) #/HPF Amorphous Sediment Few Urine Bacteria Large A (NONE SEEN) #/HPF Urine Casts Seen A (NONE SEEN) #/LPF Hyaline Casts Moderate Fine Granular Casts Few Urine Mucus None seen (NONE SEEN) Ur Culture Indicated? Yes Influenza Type A Ag Negative Influenza Type B Ag Negative SARS-CoV-2 Ag (CV2AG) Negative (NEGATIVE) Imaging Data Chest x-ray: Radiologist's impression: ITS Impressions Chest X-Ray 11/18/23 13:19 IMPRESSION: No acute cardiopulmonary process. Electronically authenticated by: PRATEEK GARCIA Date: 11/18/2023 13:57 ECG Data Attestation: I personally reviewed and interpreted this ECG as follows: (NSR at a rate of 62, no acute ST elevation, no ectopy, EKG reviewed by attending physician) Discharge Plan Discharge Chief Complaint: Nausea/Vomiting/Diarrhea Clinical Impression: Acute hypotension, Nausea & vomiting, Dehydration Patient Disposition: Home, Self-Care Time of Disposition Decision: 16:10 Condition: Good Prescriptions / Home Meds: New promethazine 25 mg tablet 25 mg PO Q6H PRN (Reason: nausea and vomiting) Qty: 12 0RF Instructions: Dehydration (ED), Acute Nausea and Vomiting (ED), Hypotension (ED) Referrals: Riley Posada MD [Primary Care Provider] - 1 week Discharge Date/Time: 11/18/23 16:20 Stand Alone Forms: Portal Instructions
--- OUTSIDE RECORDS SUMMARY | 2023-11-18 13:21 | XMS_ITS | CCD ---
Author Name Unknown Address [address] [place] [address] Organization [facility] Care Team Providers Care Psych Arnp Name Role Phone JOSELO, DR MACK Admitting [...] SCREENon -0 OCCULT BLOOD Negative Normal NEGATIVE [facility] Comment on above: Performed By: #### O BSCRN #### [facility] [address] [place] [address] Dr. Enrrique Torrez CBC AUTO DIFFon 03-24-2022 BASO # 0.1 103/ul Normal 0.0-0.1 [facility] Comment on above: Performed By: #### C BC #### [facility] [address] [place] [address] Dr. Enrrique Torrez Basophils/100 WBC (Bld) 0.7 % Normal 0.2-2.0 [facility] Comment on above: Performed By: #### C BC #### [facility] [address] [place] [address] Dr. Enrrique Torrez EO # 0.2 103/ul Normal 0.0-0.7 [facility] Comment on above: Performed By: #### C BC #### [facility] [address] [place] [address] Dr. Enrrique Torrez Eosinophils/100 WBC (Bld) 2.2 % Normal 0.9-7.0 [facility] Comment on above: Performed By: #### C BC #### [facility] [address] [place] [address] Dr. Enrrique Torrez Erythrocyte distribution width (RBC) [Ratio] 13.2 % Normal 11.0-15.0 [facility] Comment on above: Performed By: #### C BC #### [facility] [address] [place] [address] Dr. Enrrique Torrez Hematocrit (Bld) [Volume fraction] 41.2 % Normal 36.0-48.0 [facility] Comment on above: Performed By: #### C BC #### [facility] [address] [place] [address] Dr. Enrrique Torrez Hemoglobin (Bld) [Mass/Vol] 13.4 g/dL Normal 12.0-16.0 [facility] Comment on above: Performed By: #### C BC #### [facility] [address] [place] [address] Dr. Enrrique Torrez IG # 0.02 10e3/ul Normal 0.00-0.03 [facility] Comment on above: Performed By: #### C BC #### [facility] [address] [place] [address] Dr. Enrrique Torrez IG % 0.3 % Normal 0.0-0.5 [facility] Comment on above: Performed By: #### C BC #### [facility] [address] [place] [address] Dr. Enrrique Torrez LYMPH # 2.0 103/ul Normal 1.2-3.8 [facility] Comment on above: Performed By: #### C BC #### [facility] [address] [place] [address] Dr. Enrrique Torrez Lymphocytes/100 WBC (Bld) 29.4 % Normal 20.5-60.0 [facility] Comment on above: Performed By: #### C BC #### [facility] [address] [place] [address] Dr. Enrrique Torrez MANUAL DIFF REQ NO Normal [facility] Comment on above: Performed By: #### C BC #### [facility] [address] [place] [address] Dr. Enrrique Torrez MCH (RBC) [Entitic mass] 31.9 pg Normal 26.7-34.0 [facility] Comment on above: Performed By: #### C BC #### [facility] [address] [place] [address] Dr. Enrrique Torrez MCHC (RBC) [Mass/Vol] 32.5 g/dL Normal 29.9-35.2 [facility] Comment on above: Performed By: #### C BC #### [facility] [address] [place] [address] Dr. Enrrique Torrez MCV (RBC) [Entitic vol] 98.1 fL Normal 81.0-99.0 [facility] Comment on above: Performed By: #### C BC #### [facility] [address] [place] [address] Dr. Enrrique Torrez MONO # 0.6 103/ul Normal 0.3-0.8 [facility] Comment on above: Performed By: #### C BC #### [facility] [address] [place] [address] Dr. Enrrique Torrez Monocytes/100 WBC (Bld) 9.1 % Normal 1.7-12.0 [facility] Comment on above: Performed By: #### C BC #### [facility] [address] [place] [address] Dr. Enrrique Torrez NEUT # 4.0 103/ul Normal 1.4-6.5 [facility] Comment on above: Performed By: #### C BC #### [facility] [address] [place] [address] Dr. Enrrique Torrez Neutrophils/100 WBC (Bld) 58.3 % Normal 43.0-75.0 [facility] Comment on above: Performed By: #### C BC #### [facility] [address] [place] [address] Dr. Enrrique Torrez Platelet mean volume (Bld) [Entitic vol] 8.7 fL Critically low 9.5-13.5 [facility] Comment on above: Performed By: #### C BC #### [facility] [address] [place] [address] Dr. Enrrique Torrez PLT 285 103/ul Normal 150-450 [facility] Comment on above: Performed By: #### C BC #### [facility] [address] [place] [address] Dr. Enrrique Torrez RBC 4.20 106/ul Normal 4.20-5.40 [facility] Comment on above: Performed By: #### C BC #### [facility] [address] [place] [address] Dr. Enrrique Torrez WBC 6.8 103/ul Normal 4.0-11.0 [facility] Comment on above: Performed By: #### C BC #### [facility] [address] [place] [address] Dr. Enrrique Torrez FREE THYROXINE INDEX T7on FTI 2.98 Normal 1.30-4.50 [facility] Comment on above: Performed By: #### L IPID, TSH, CMP, T7 #### [facility] [address] [address] [address] Enrrique Torrez T3U 32.0 % Normal 30.0-39.0 [facility] Comment on above: Performed By: #### L IPID, TSH, CMP, T7 #### [facility] [address] [address] [address] Enrrique Torrez T4 [Mass/Vol] 9.30 ug/dL Normal 4.80-13.90 [facility] Comment on above: Performed By: #### L IPID, TSH, CMP, T7 #### [facility] [address] [place] [address] Dr. Enrrique Torrez GLYCOHEMOGLOBIN A1Con 2021 ADA RECOMMENDATION SEE BELOW Normal [facility] Comment on above: Result Comment: ADA RECOMMENDED LIMIT 4.0 - 6.0 ADA THERAPEUTIC TARGET < 7.0 ACTION SUGGESTED > 7.0 Performed By: #### A 1C #### [facility] [address] [address] [address] Enrrique Torrez Glucose [Mass/Vol] 120 mg/dL Normal [facility] Comment on above: Performed By: #### A 1C #### [facility] [address] [place] [address] Dr. Enrrique Torrez HbA1c (Bld) [Mass fraction] 5.8 % Normal 4.5-6.2 [facility] Comment on above: Performed By: #### A 1C #### [facility] [address] [place] [address] Dr. Enrrique Torrez IRONon 03-24-2022 Iron [Mass/Vol] 119.0 ug/dL Normal 50.0-170.0 [facility] Comment on above: Performed By: #### I DARIA #### [facility] [address] [place] [address] Dr. Enrrique Torrez LIPID PROFILEon 03-24-2022 CHOL-HDL RATIO NORM SEE BELOW Normal [facility] Comment on above: Result Comment: 3.3 - 4.4 LOW RISK 4.4 - 7.1 AVERAGE RISK 7.1 - 11.0 MODERATE RISK >11.0 HIGH RISK Performed By: #### L IPID, TSH, CMP, T7 #### [facility] [address] [address] [address] Enrrique Torrez Cholesterol [Mass/Vol] 165 mg/dL Normal <=200 [facility] Comment on above: Performed By: #### L IPID, TSH, CMP, T7 #### [facility] [address] [address] [address] Enrrique Torrez Cholesterol in HDL [Mass/Vol] 48 mg/dL Normal 40-60 [facility] Comment on above: Performed By: #### L IPID, TSH, CMP, T7 #### [facility] [address] [address] [address] Enrrique Torrez Cholesterol in LDL [Mass/Vol] 93.2 mg/dL Normal [facility] Comment on above: Performed By: #### L IPID, TSH, CMP, T7 #### [facility] [address] [address] [address] Enrrique Torrez Cholesterol.total/Cho lesterol in HDL [Mass ratio] 3.4 {ratio} Normal [facility] Comment on above: Performed By: #### L IPID, TSH, CMP, T7 #### [facility] [address] [address] [address] Enrrique Torrez HDL NORMAL > or = 60 mg/dl - LOW CARDIOVASCULAR RISK <40 mg/dl - HIGH CARDIOVASCULAR RISK Normal [facility] Comment on above: Performed By: #### L IPID, TSH, CMP, T7 #### [facility] [address] [address] [address] Enrrique Torrez LDL CALC NORMAL SEE BELOW Normal [facility] Comment on above: Result Comment: <100 mg/dl OPTIMAL 100 - 129 mg/dl NEAR OR ABOVE OPTIMAL 130 - 159 mg/dl BORDERLINE HIGH 160 - 189 mg/dl HIGH >190 mg/dl VERY HIGH Performed By: #### L IPID, TSH, CMP, T7 #### [facility] [address] [address] [address] Enrrique Torrez Triglyceride [Mass/Vol] 119 mg/dL Normal <=150 [facility] Comment on above: Performed By: #### L IPID, TSH, CMP, T7 #### [facility] [address] [address] [address] Enrrique Torrez VLDL CALC 23.8 mg/dL Normal [facility] Comment on above: Performed By: #### L IPID, TSH, CMP, T7 #### [facility] [address] [address] [address] Enrrique Torrez PROF 14(COMP METB)on 022 Albumin [Mass/Vol] 3.6 g/dL Normal 3.4-5.0 [facility] Comment on above: Performed By: #### L IPID, TSH, CMP, T7 #### [facility] [address] [address] [address] Enrrique Torrez Albumin/Globulin [Mass ratio] 0.9 {ratio} Normal [facility] Comment on above: Performed By: #### L IPID, TSH, CMP, T7 #### [facility] [address] [address] [address] Enrrique Torrez ALP [Catalytic activity/Vol] 66 U/L Normal 46-116 [facility] Comment on above: Performed By: #### L IPID, TSH, CMP, T7 #### [facility] [address] [address] [address] Enrrique Torrez ALT [Catalytic activity/Vol] 30 U/L Normal 14-59 [facility] Comment on above: Performed By: #### L IPID, TSH, CMP, T7 #### [facility] [address] [address] [address] Enrrique Torrez Anion gap [Moles/Vol] 14.4 mmol/L Normal [facility] [place] Comment on above: Performed By: #### L IPID, TSH, CMP, T7 #### [facility] [address] [address] [address] Enrrique Torrez AST [Catalytic activity/Vol] 21 U/L Normal 15-37 [facility] Comment on above: Performed By: #### L IPID, TSH, CMP, T7 #### [facility] [address] [address] [address] Enrrique Torrez Bilirubin [Mass/Vol] 0.4 mg/dL Normal 0.2-1.0 [facility] Comment on above: Performed By: #### L IPID, TSH, CMP, T7 #### [facility] [address] [address] [address] Enrrique Torrez Calcium [Mass/Vol] 9.2 mg/dL Normal 8.5-10.1 [facility] Comment on above: Performed By: #### L IPID, TSH, CMP, T7 #### [facility] [address] [place] [address] Dr. Enrrique Torrez Chloride [Moles/Vol] 106 mmol/L Normal 98-107 [facility] Comment on above: Performed By: #### L IPID, TSH, CMP, T7 #### [facility] [address] [address] [address] Enrrique Torrez CO2 [Moles/Vol] 26.4 mmol/L Normal 21.0-32.0 [facility] Comment on above: Performed By: #### L IPID, TSH, CMP, T7 #### [facility] [address] [place] [address] Dr. Enrrique Torrez Creatinine [Mass/Vol] 0.88 mg/dL Normal 0.55-1.02 [facility] Comment on above: Performed By: #### L IPID, TSH, CMP, T7 #### [facility] [address] [place] [address] Dr. Enrrique Torrez EGFR-AF NEPALESE >60 Normal >=60 [facility] Comment on above: Performed By: #### L IPID, TSH, CMP, T7 #### [facility] [address] [place] [address] Dr. Enrrique Torrez EGFR-NON AF NEPALESE >60 Normal >=60 [facility] Comment on above: Performed By: #### L IPID, TSH, CMP, T7 #### [facility] [address] [address] [address] Enrrique Torrez Globulin (S) [Mass/Vol] 3.8 g/dL Normal [facility] Comment on above: Performed By: #### L IPID, TSH, CMP, T7 #### [facility] [address] [address] [address] Enrrique Torrez Glucose [Mass/Vol] 108 mg/dL Critically high 74-106 [facility] Comment on above: Performed By: #### L IPID, TSH, CMP, T7 #### [facility] [address] [address] [address] Enrrique Torrez Potassium [Moles/Vol] 4.8 mmol/L Normal 3.5-5.1 [facility] Comment on above: Performed By: #### L IPID, TSH, CMP, T7 #### [facility] [address] [place] [address] Dr. Enrrique Torrez Protein [Mass/Vol] 7.4 g/dL Normal 6.4-8.2 [facility] Comment on above: Performed By: #### L IPID, TSH, CMP, T7 #### [facility] [address] [address] [address] Enrrique Torrez Sodium [Moles/Vol] 142 mmol/L Normal 136-145 [facility] Comment on above: Performed By: #### L IPID, TSH, CMP, T7 #### [facility] [address] [address] [address] Enrrique Torrez Urea nitrogen [Mass/Vol] 17.0 mg/dL Normal 7.0-18.0 [facility] Comment on above: Performed By: #### L IPID, TSH, CMP, T7 #### [facility] [address] [place] [address] Dr. Enrrique Torrez Urea nitrogen/Creatinine [Mass ratio] 19.3 mg/mg Normal [facility] Comment on above: Performed By: #### L IPID, TSH, CMP, T7 #### [facility] [address] [address] [address] Enrrique Torrez TSHon 03-24-2022 TSH 0.863 uIU/mL Normal 0.358-3.740 [facility] Comment on above: Performed By: #### L IPID, TSH, CMP, T7 #### [facility] [address] [address] [address] Enrrique Torrez XR RIBS RT NO [...] AKBAR AMARAL Date: 2022-02-20 18:14 Normal [facility] Encounters Encounter Date Encounter Type Care Provider Facility Start: 08-04-2022 ambulatory JONG Lorenz y:[facility] Start: 07-02-2022 End: 07-03-[address] FREDERICK JOSUE Facility:[facility] Start: 03-29-2022 Encounter for genera l adult medical examination without abnormal findings DR FREDERICK JOSUE [facility] Start: 03-25-2022 End: 03-25-[address] FREDERICK JOSUE Facility:[facility] Start: 03-25-2022 End: 03-25-2022 Encounter for general adult medical examination without abnormal findings DR FREDERICK JOSUE Facility:[facility] Start: 03-24-2022 End: 03-25-[address] FREDERICK JOSUE Facility:[facility] Start: 02-20-2022 End: 02-21-[address] FREDERICK JOSUE Facility:[facility] Payers Date Payer Category Payer Private Health Insurance [facility] [id number] 1955 Unknown [id number] [id number] [id number] 1955 Unknown [id number] [id number] [id number] 1955 Unknown [id number] [id number] [id number] 1955 Unknown [id number] 2.16.84 [id number] 1955 Unknown [id number] 2.16.84 [id number] Clinical Note 07-02-2022 Note Date & Type [...] authenticated by: JEWELS NAGEL Date: 2022-07-02 18:46 [facility] Summary Purpose Family History No Family History Records Found Advance Directives No Advanced Directives Records Found Additional Source Comments INFORMATION SOURCE (unrecogn ized section and content) DATE CREATED AUTHOR 08/11/2022 [facility] FOR RECORDS PERTAINING TO PATIENTS WHO ARE [...] BE BASED ON THE PRIMARY CLINICAL RECORDS. [facility]. provides no warranty or guarantee of the accuracy or completeness of information in this document.
[2023-11-18 13:44] LABS: Basophils Percent Auto 0.2 % (0.2-2.0); Eosinophils Percent Auto 0.4 % (0.9-7.0); Hematocrit 43.1 % (36.0-48.0); Hemoglobin 14.2 g/dL (12.0-16.0); Immature Granulocytes Abs Auto 0.03 10^3/uL (0.00-0.03); Immature Granulocytes Pct Auto 0.3 % (0.0-0.5); Lymphocytes Absolute Auto 1.6 10^3/uL (1.2-3.8); Mean Corpuscular HGB Conc 32.9 g/dL (29.9-35.2); Mean Corpuscular Volume 97.1 fL (81.0-99.0); Monocytes Absolute Auto 0.6 10^3/uL (0.3-0.8); Monocytes Percent Auto 5.3 % (1.7-12.0); Neutrophils Absolute Auto 8.6 10^3/uL (1.4-6.5); Neutrophils Percent Auto 78.8 % (43.0-75.0); Platelet Count 239 10^3/uL (150-450); Red Blood Count 4.44 10^6/uL (4.20-5.40); Red Cell Distribution Width 13.1 % (11.0-15.0); White Blood Count 10.9 10^3/uL (4.0-11.0)
[2023-11-18] MEDS: ONDANSETRON PF 4 MG/2 ML VIAL IV (13:49)
[2023-11-18] MEDS: 0.9 % SODIUM CHLORIDE 1,000 ML 999 ML IV (13:49)
[2023-11-18 14:02] LABS: Alanine Aminotransferase 29 U/L (14-59); Albumin Level 3.4 g/dL (3.4-5.0); Alkaline Phosphatase 55 U/L (46-116); Anion Gap 16.8; Aspartate Amino Transferase 17 U/L (15-37); BUN Creatinine Ratio 15.6; Bilirubin Total 0.4 mg/dL (0.2-1.0); Calcium 8.9 mg/dL (8.5-10.1); Carbon Dioxide 23.8 mmol/L (21.0-32.0); Chloride 105 mmol/L (98-107); Estimated GFR (African America 53 (>=60); Estimated GFR (Non-African Ame 44 (>=60); Globulin 3.4 g/dL; Glucose 183 mg/dL (74-106); Potassium 3.6 mmol/L (3.5-5.1); Sodium 142 mmol/L (136-145); Total Protein 6.8 g/dL (6.4-8.2); Troponin I High Sensitivity <4.0 pg/mL (4.0-51.3)
[2023-11-18 14:13] LABS: INR 0.98; Prothrombin Time 10.4 sec (9.0-11.6)
[2023-11-18 14:25] VITALS: BP 95/56; PULSE 60; RESP 18; O2SAT 97
[2023-11-18 14:27] LABS: Influenza Virus A Antigen Negative; Influenza Virus B Antigen Negative; Internal Control Within Normal Limits; SARS-CoV-2 Ag NEGATIVE (NEGATIVE)
[2023-11-18] MEDS: 0.9 % SODIUM CHLORIDE 1,000 ML 1000 ML IV (14:57)
[2023-11-18 15:03] VITALS: BP 118/60; PULSE 79; RESP 18; O2SAT 97
[2023-11-18 15:32] VITALS: TEMP 36.3
[2023-11-18 15:52] LABS: Bilirubin Urine SMALL (NEGATIVE); Blood Urine TRACE-I (NEGATIVE); Clarity Urine CLOUDY (CLEAR); Color Urine DK. YELLOW (YELLOW); Glucose Urine UA NEGATIVE (NEGATIVE); Ketones Urine NEGATIVE (NEGATIVE); Leukocyte Esterase Urine NEGATIVE (NEGATIVE); Nitrite Urine NEGATIVE (NEGATIVE); Protein Urine >=300 mg/dL (NEG/TRACE); Specific Gravity Urine >=1.030 (1.005-1.025); Urobilinogen Urine 0.2 EU/dL (0.2-1.0); pH Urine 5.5 (5.0-9.0)
[2023-11-18 15:59] LABS: Urine Microscopic Indicated YES
[2023-11-18 16:08] LABS: Amorphous Sediment Urine FEW; Bacteria Urine LARGE #/HPF (NONE SEEN); Cast Seen? SEEN #/LPF (NONE SEEN); Crystals Seen? Seen #/HPF (None Seen); Fine Granular Casts Urine FEW; Hyaline Casts Urine MODERATE; Mucus Urine NONE SEEN (NONE SEEN); Squamous Epithelial Cell Urine FEW #/LPF (NONE/RARE); Urine Culture Indicated YES
--- NOTE | 2023-11-18 16:08 | ECG_ITS ---
[facility] Test Date: 2023-11-18 Pat Name: FABIAN TEJEDA Department: Room: - Gender: Female Rn Acute Care: : 1955 Requested By: FREDERICK JOSUE Order Number: [id number] Reading MD: FREDERICK JOSUE Measurements Intervals [place] Rate: 72 P: 52 AR: 178 QRS: 47 QRSD: 72 T: 45 QT: 390 QTc: 415 Interpretive Statements 1100 Sinus rhythm 8102 Low QRS voltage in chest leads 9120 atypical ECG Compared to ECG 03/14/2021 12:36:10 No significant changes Electronically Signed On 11-19-2023 8:35:32 EST by FREDERICK JOSUE
== END 2023-11-18 16:20 | disposition home or self-care (01) ==
PROVIDERS: Physician Assistant; Emergency Provider Emergency Medicine Emergency Medical Services; PCP Family Medicine
DX: R11.2 Nausea with vomiting, unspecified (principal); E86.0 Dehydration; I95.9 Hypotension, unspecified; Z20.822 Contact with and (suspected) exposure to COVID-19; R82.89 Other abnormal findings on cytological and histological examination of urine
CPT/HCPCS: 36415; 71045; 80053; 81001; 83605; 84484; 85025; 85610; 87040; 87086; 87804; 87811; 93005; 96361; 96374; 99285

== ENCOUNTER 2024-10-05 11:13 | Outpatient (OUT) | payer OTHER, SELFPAY ==
--- OUTSIDE RECORDS SUMMARY | 2024-10-05 11:30 | XMS_ITS | CCD ---
Author Organization [facility] Care Team Providers Care Property Master Name Role Phone JOSELO, DR MACK Admitting [...] Angel Consulting Unavailable SHREYAS, JONG Consulting Unavailable HOY, DR MACK Admitting Unavailable HOY, [...] Range Facil ity OCC BLD IMMUNO SCREENon 07-0 6-2022 OCCULT BLOOD Negative Normal NEGATIVE [facility] Comment on above: Performed By: #### O BSCRN #### [facility] [address] [place] [address] Dr. Enrrique Torrez CBC AUTO DIFFon 03-24-2022 BASO # 0.1 103/ul Normal 0.0-0.1 [facility] Comment on above: Performed By: #### C BC #### [facility] [address] [place] [address] Dr. Enrrique Torrez Basophils/100 WBC (Bld) 0.7 % Normal 0.2-2.0 [facility] Comment on above: Performed By: #### C BC #### [facility] [address] [place] [address] Dr. Enrrique Torrez EO # 0.2 103/ul Normal 0.0-0.7 [facility] Comment on above: Performed By: #### C BC #### [facility] [address] [place] [address] Dr. Enrrique Torrez Eosinophils/100 WBC (Bld) 2.2 % Normal 0.9-7.0 [facility] Comment on above: Performed By: #### C BC #### [facility] [address] [place] [address] Dr. Enrrique Torrez Erythrocyte distribution width (RBC) [Ratio] 13.2 % Normal 11.0-15.0 [facility] Comment on above: Performed By: #### C BC #### [facility] [address] [place] [address] Dr. Enrrique Torrez Hematocrit (Bld) [Volume fraction] 41.2 % Normal 36.0-48.0 [facility] Comment on above: Performed By: #### C BC #### [facility] [address] [place] [address] Dr. Enrrique Torrez Hemoglobin (Bld) [Mass/Vol] 13.4 g/dL Normal 12.0-16.0 [facility] Comment on above: Performed By: #### C BC #### [facility] [address] [place] [address] Dr. Enrrique Torrez IG # 0.02 10e3/ul Normal 0.00-0.03 [facility] Comment on above: Performed By: #### C BC #### [facility] [address] [place] [address] Dr. Enrrique Torrez IG % 0.3 % Normal 0.0-0.5 [facility] Comment on above: Performed By: #### C BC #### [facility] [address] [place] [address] Dr. Enrrique Torrez LYMPH # 2.0 103/ul Normal 1.2-3.8 [facility] Comment on above: Performed By: #### C BC #### [facility] [address] [place] [address] Dr. Enrrique Torrez Lymphocytes/100 WBC (Bld) 29.4 % Normal 20.5-60.0 [facility] Comment on above: Performed By: #### C BC #### [facility] [address] [place] [address] Dr. Enrrique Torrez MANUAL DIFF REQ NO Normal [facility] Comment on above: Performed By: #### C BC #### [facility] [address] [place] [address] Dr. Enrrique Torrez MCH (RBC) [Entitic mass] 31.9 pg Normal 26.7-34.0 [facility] Comment on above: Performed By: #### C BC #### [facility] [address] [place] [address] Dr. Enrrique Torrez MCHC (RBC) [Mass/Vol] 32.5 g/dL Normal 29.9-35.2 [facility] Comment on above: Performed By: #### C BC #### [facility] [address] [place] [address] Dr. Enrrique Torrez MCV (RBC) [Entitic vol] 98.1 fL Normal 81.0-99.0 [facility] Comment on above: Performed By: #### C BC #### [facility] [address] [place] [address] Dr. Enrrique Torrez MONO # 0.6 103/ul Normal 0.3-0.8 [facility] Comment on above: Performed By: #### C BC #### [facility] [address] [place] [address] Dr. Enrrique Torrez Monocytes/100 WBC (Bld) 9.1 % Normal 1.7-12.0 [facility] Comment on above: Performed By: #### C BC #### [facility] [address] [place] [address] Dr. Enrrique Torrez NEUT # 4.0 103/ul Normal 1.4-6.5 [facility] Comment on above: Performed By: #### C BC #### [facility] [address] [place] [address] Dr. Enrrique Torrez Neutrophils/100 WBC (Bld) 58.3 % Normal 43.0-75.0 [facility] Comment on above: Performed By: #### C BC #### [facility] [address] [place] [address] Dr. Enrrique Torrez Platelet mean volume (Bld) [Entitic vol] 8.7 fL Critically low 9.5-13.5 [facility] Comment on above: Performed By: #### C BC #### [facility] [address] [place] [address] Dr. Enrrique Torrez PLT 285 103/ul Normal 150-450 [facility] Comment on above: Performed By: #### C BC #### [facility] [address] [place] [address] Dr. Enrrique Torrez RBC 4.20 106/ul Normal 4.20-5.40 [facility] Comment on above: Performed By: #### C BC #### [facility] [address] [place] [address] Dr. Enrrique Torrez WBC 6.8 103/ul Normal 4.0-11.0 [facility] Comment on above: Performed By: #### C BC #### [facility] [address] [place] [address] Dr. Enrrique Torrez FREE THYROXINE INDEX T7on FTI 2.98 Normal 1.30-4.50 [facility] Comment on above: Performed By: #### L IPID, TSH, CMP, T7 #### [facility] [address] [address] [address] Enrrique Torrez T3U 32.0 % Normal 30.0-39.0 [facility] Comment on above: Performed By: #### L IPID, TSH, CMP, T7 #### [facility] [address] [address] [address] Enrrique Torrez T4 [Mass/Vol] 9.30 ug/dL Normal 4.80-13.90 [facility] Comment on above: Performed By: #### L IPID, TSH, CMP, T7 #### [facility] [address] [place] [address] Dr. Enrrique Torrez GLYCOHEMOGLOBIN A1Con 2021 ADA RECOMMENDATION SEE BELOW Normal [facility] Comment on above: Result Comment: ADA RECOMMENDED LIMIT 4.0 - 6.0 ADA THERAPEUTIC TARGET < 7.0 ACTION SUGGESTED > 7.0 Performed By: #### A 1C #### [facility] [address] [place] [address] Dr. Enrrique Torrez Glucose [Mass/Vol] 120 mg/dL Normal [facility] Comment on above: Performed By: #### A 1C #### [facility] [address] [place] [address] Dr. Enrrique Torrez HbA1c (Bld) [Mass fraction] 5.8 % Normal 4.5-6.2 [facility] Comment on above: Performed By: #### A 1C #### [facility] [address] [place] [address] Dr. Enrrique Torrez IRONon 03-24-2022 Iron [Mass/Vol] 119.0 ug/dL Normal 50.0-170.0 [facility] Comment on above: Performed By: #### I DARIA #### [facility] [address] [place] [address] Dr. Enrrique Torrez LIPID PROFILEon 03-24-2022 CHOL-HDL RATIO NORM SEE BELOW Normal [facility] Comment on above: Result Comment: 3.3 - 4.4 LOW RISK 4.4 - 7.1 AVERAGE RISK 7.1 - 11.0 MODERATE RISK >11.0 HIGH RISK Performed By: #### L IPID, TSH, CMP, T7 #### [facility] [address] [place] [address] Dr. Enrrique Torrez Cholesterol [Mass/Vol] 165 mg/dL Normal <=200 [facility] Comment on above: Performed By: #### L IPID, TSH, CMP, T7 #### [facility] [address] [address] [address] Enrrique Torrez Cholesterol in HDL [Mass/Vol] 48 mg/dL Normal 40-60 [facility] Comment on above: Performed By: #### L IPID, TSH, CMP, T7 #### [facility] [address] [address] [address] Enrrique Torrez Cholesterol in LDL [Mass/Vol] 93.2 mg/dL Normal [facility] Comment on above: Performed By: #### L IPID, TSH, CMP, T7 #### [facility] [address] [place] [address] Dr. Enrrique Torrez Cholesterol.total/Cho lesterol in HDL [Mass ratio] 3.4 {ratio} Normal [facility] Comment on above: Performed By: #### L IPID, TSH, CMP, T7 #### [facility] [address] [place] [address] Dr. Enrrique Torrez HDL NORMAL > or = 60 mg/dl - LOW CARDIOVASCULAR RISK <40 mg/dl - HIGH CARDIOVASCULAR RISK Normal [facility] Comment on above: Performed By: #### L IPID, TSH, CMP, T7 #### [facility] [address] [address] [address] Enrrique Torrez LDL CALC NORMAL SEE BELOW Normal [facility] Comment on above: Result Comment: <100 mg/dl OPTIMAL 100 - 129 mg/dl NEAR OR ABOVE OPTIMAL 130 - 159 mg/dl BORDERLINE HIGH 160 - 189 mg/dl HIGH >190 mg/dl VERY HIGH Performed By: #### L IPID, TSH, CMP, T7 #### [facility] [address] [place] [address] Dr. Enrrique Torrez Triglyceride [Mass/Vol] 119 mg/dL Normal <=150 [facility] Comment on above: Performed By: #### L IPID, TSH, CMP, T7 #### [facility] [address] [address] [address] Enrrique Torrez VLDL CALC 23.8 mg/dL Normal [facility] Comment on above: Performed By: #### L IPID, TSH, CMP, T7 #### [facility] [address] [address] [address] Enrrique Torrez PROF 14(COMP METB)on 022 Albumin [Mass/Vol] 3.6 g/dL Normal 3.4-5.0 [facility] Comment on above: Performed By: #### L IPID, TSH, CMP, T7 #### [facility] [address] [place] [address] Dr. Enrrique Torrez Albumin/Globulin [Mass ratio] 0.9 {ratio} Normal [facility] Comment on above: Performed By: #### L IPID, TSH, CMP, T7 #### [facility] [address] [address] [address] Enrrique Torrez ALP [Catalytic activity/Vol] 66 U/L Normal 46-116 [facility] Comment on above: Performed By: #### L IPID, TSH, CMP, T7 #### [facility] [address] [place] [address] Dr. Enrrique Torrez ALT [Catalytic activity/Vol] 30 U/L Normal 14-59 [facility] Comment on above: Performed By: #### L IPID, TSH, CMP, T7 #### [facility] [address] [address] [address] Enrrique Torrez Anion gap [Moles/Vol] 14.4 mmol/L Normal [facility] Comment on above: Performed By: #### L IPID, TSH, CMP, T7 #### [facility] [address] [address] [address] Enrrique Torrez AST [Catalytic activity/Vol] 21 U/L Normal 15-37 [facility] Comment on above: Performed By: #### L IPID, TSH, CMP, T7 #### [facility] [address] [place] [address] Dr. Enrrique Torrez Bilirubin [Mass/Vol] 0.4 mg/dL Normal 0.2-1.0 [facility] Comment on above: Performed By: #### L IPID, TSH, CMP, T7 #### [facility] [address] [place] [address] Dr. Enrrique Torrez Calcium [Mass/Vol] 9.2 mg/dL Normal 8.5-10.1 [facility] Comment on above: Performed By: #### L IPID, TSH, CMP, T7 #### [facility] [address] [place] [address] Dr. Enrrique Torrez Chloride [Moles/Vol] 106 mmol/L Normal 98-107 [facility] Comment on above: Performed By: #### L IPID, TSH, CMP, T7 #### [facility] [address] [place] [address] Dr. Enrrique Torrez CO2 [Moles/Vol] 26.4 mmol/L Normal 21.0-32.0 [facility] Comment on above: Performed By: #### L IPID, TSH, CMP, T7 #### [facility] [address] [place] [address] Dr. Enrrique Torrez Creatinine [Mass/Vol] 0.88 mg/dL Normal 0.55-1.02 [facility] Comment on above: Performed By: #### L IPID, TSH, CMP, T7 #### [facility] [address] [place] [address] Dr. Enrrique Torrez EGFR-AF LIBERIAN >60 Normal >=60 [facility] Comment on above: Performed By: #### L IPID, TSH, CMP, T7 #### [facility] [address] [place] [address] Dr. Enrrique Torrez EGFR-NON AF LIBERIAN >60 Normal >=60 [facility] Comment on above: Performed By: #### L IPID, TSH, CMP, T7 #### [facility] [address] [place] [address] Dr. Enrrique Torrez Globulin (S) [Mass/Vol] 3.8 g/dL Normal [facility] Comment on above: Performed By: #### L IPID, TSH, CMP, T7 #### [facility] [address] [address] [address] Enrrique Torrez Glucose [Mass/Vol] 108 mg/dL Critically high 74-106 [facility] Comment on above: Performed By: #### L IPID, TSH, CMP, T7 #### [facility] [address] [address] [address] Enrrique Torrez Potassium [Moles/Vol] 4.8 mmol/L Normal 3.5-5.1 [facility] Comment on above: Performed By: #### L IPID, TSH, CMP, T7 #### [facility] [address] [place] [address] Dr. Enrrique Torrez Protein [Mass/Vol] 7.4 g/dL Normal 6.4-8.2 [facility] Comment on above: Performed By: #### L IPID, TSH, CMP, T7 #### [facility] [address] [address] [address] Enrrique Torrez Sodium [Moles/Vol] 142 mmol/L Normal 136-145 [facility] Comment on above: Performed By: #### L IPID, TSH, CMP, T7 #### [facility] [address] [place] [address] Dr. Enrrique Torrez Urea nitrogen [Mass/Vol] 17.0 mg/dL Normal 7.0-18.0 [facility] Comment on above: Performed By: #### L IPID, TSH, CMP, T7 #### [facility] [address] [place] [address] Dr. Enrrique Torrez Urea nitrogen/Creatinine [Mass ratio] 19.3 mg/mg Normal [facility] Comment on above: Performed By: #### L IPID, TSH, CMP, T7 #### [facility] [address] [place] [address] Dr. Enrrique Torrez TSHon 03-24-2022 TSH 0.863 uIU/mL Normal 0.358-3.740 [facility] Comment on above: Performed By: #### L IPID, TSH, CMP, T7 #### [facility] [address] [address] [address] Enrrique Torrez XR RIBS RT NO [...] 2022-02-20 18:14 Normal [facility] Encounters Encounter Date Encounter Type Care Provider Facility Start: 08-04-2022 ambulatory JONG Lorenz y:[facility] Start: 07-02-2022 End: 07-03-[address] FREDERICK JOSUE Facility:[facility] Start: 03-29-2022 Encounter for genera l adult medical examination without abnormal findings DR FREDERICK JOSUE [facility] Start: 03-25-2022 End: 03-25-[address] FREDERICK JOSUE Facility:[facility] Start: 03-25-2022 End: 03-25-2022 Encounter for general adult medical examination without abnormal findings DR FREDERICK JOSUE Facility:[facility] Start: 03-24-2022 End: 03-25-[address] FREDERICK JOSUE Facility:[facility] Start: 02-20-2022 End: 02-21-[address] FREDERICK JOSUE Facility:[facility] Payers Date Payer Category Payer Private Health Insurance [id number] 1955 Unknown [id number] [id number] [id number] 1955 Unknown [id number] [id number] 1955 Unknown [id number] [id number] 1955 Unknown [id number] [id number] 1955 Unknown [id number] [id number] Clinical Note 07-02-2022 Note Date & Type [...] authenticated by: JEWELS NAGEL Date: 2022-07-02 18:46 [facility] Summary Purpose Family History No Family History Records Found Advance Directives No Advanced Directives Records Found Additional Source Comments INFORMATION SOURCE (unrecogn ized section and content) DATE CREATED AUTHOR 08/11/2022 [facility] FOR RECORDS PERTAINING TO PATIENTS WHO ARE [...] BE BASED ON THE PRIMARY CLINICAL RECORDS. [employer] provides no warranty or guarantee of the accuracy or completeness of information in this document.
[2024-10-05 11:46] LABS: Basophils Percent Auto 0.8 % (0.2-2.0); Eosinophils Absolute Auto 0.1 10^3/uL (0.0-0.7); Hematocrit 45.9 % (36.0-48.0); Hemoglobin 14.8 g/dL (12.0-16.0); Immature Granulocytes Abs Auto 0.02 10^3/uL (0.00-0.03); Immature Granulocytes Pct Auto 0.4 % (0.0-0.5); Lymphocytes Absolute Auto 1.4 10^3/uL (1.2-3.8); Lymphocytes Percent Auto 27.1 % (20.5-60.0); Mean Corpuscular HGB Conc 32.2 g/dL (29.9-35.2); Mean Corpuscular Hemoglobin 31.6 pg (26.7-34.0); Mean Corpuscular Volume 98.1 fL (81.0-99.0); Mean Platelet Volume 8.8 fL (9.5-13.5); Monocytes Absolute Auto 0.9 10^3/uL (0.3-0.8); Monocytes Percent Auto 17.2 % (1.7-12.0); Neutrophils Absolute Auto 2.7 10^3/uL (1.4-6.5); Neutrophils Percent Auto 53.5 % (43.0-75.0); Platelet Count 233 10^3/uL (150-450); Red Blood Count 4.68 10^6/uL (4.20-5.40); Red Cell Distribution Width 13.1 % (11.0-15.0); White Blood Count 5.1 10^3/uL (4.0-11.0)
[2024-10-05 12:17] LABS: Estimated Average Glucose 108 mg/dL; Glycohemoglobin A1C 5.4 % (4.5-6.2)
[2024-10-05 12:24] LABS: Alanine Aminotransferase 29 U/L (14-59); Albumin Level 3.8 g/dL (3.4-5.0); Alkaline Phosphatase 63 U/L (46-116); Anion Gap 11.4; Aspartate Amino Transferase 23 U/L (15-37); BUN Creatinine Ratio 10.6; Bilirubin Total 0.3 mg/dL (0.2-1.0); Calcium 10.1 mg/dL (8.5-10.1); Carbon Dioxide 30.7 mmol/L (21.0-32.0); Chloride 104 mmol/L (98-107); Chol HDL Ratio 3.2; Cholesterol 154 mg/dL (<=200); Estimated GFR (African America >60 (>=60 mL/min/1.73m^2); Estimated GFR (Non-African Ame 59 (>=60 mL/min/1.73m^2); Free T3 2.44 pg/mL (2.18-3.98); Globulin 3.9 g/dL; Glucose 101 mg/dL (74-106); HDL Cholesterol 48 mg/dL (40-60); Potassium 4.1 mmol/L (3.5-5.1); Sodium 142 mmol/L (136-145); Thyroid Stimulating Hormone 1.023 uIU/mL (0.358-3.740); Total Protein 7.7 g/dL (6.4-8.2); Triglycerides 157 mg/dL (<=150); VLDL CHOLESTEROL 31.4 mg/dL
== END 2024-10-05 11:14 | disposition home or self-care (01) ==
PROVIDERS: PCP Family Medicine; Visit Provider Family Medicine
DX: Z00.00 Encounter for general adult medical examination without abnormal findings (principal); E55.9 Vitamin D deficiency, unspecified; E78.00 Pure hypercholesterolemia, unspecified; F17.200 Nicotine dependence, unspecified, uncomplicated; R73.09 Other abnormal glucose; Z12.12 Encounter for screening for malignant neoplasm of rectum; D64.9 Anemia, unspecified
CPT/HCPCS: 36415; 80053; 80061; 82306; 83036; 83540; 84436; 84443; 84481; 85025

== ENCOUNTER 2024-11-27 12:55 | Outpatient (OUT) | payer OTHER, SELFPAY ==
--- NOTE | 2024-11-27 12:59 | MM_ITS ---
Patient Name: FABIAN TEJEDA MR#: [id number] : 1955 Exam Date: 11/27/2024 Ordering Doctor: DR Riley Posada . RADIOLOGY REPORT PROCEDURE: MM TOMOSYNTHESIS SCREENING BI COMPARISON: MM TOMOSYNTHESIS SCREENING BI, 11/16/2023. MG MAMM LOLA SCRN W CAD DIG, 06/08/2013. INDICATIONS: Screening for malignant neoplasm Calculator Name NCI Breast Cancer Risk Assessment Tool 5 Year Breast Cancer Risk 1.30% Lifetime Breast Cancer Risk 3.50% Personal Breast Cancer No Personal Ovarian Cancer No Treatments None Family Cancers Mother with throat, brain cancer at age 64. LOCATION: [facility] BREAST COMPOSITION: There are scattered areas of fibroglandular density. FINDINGS: DIAGNOSTIC CATEGORY 1--NEGATIVE. RIGHT BREAST: No significant suspicious finding. LEFT BREAST: No significant suspicious finding. RECOMMENDATIONS: ROUTINE MAMMOGRAM AND CLINICAL EVALUATION IN 12 MONTHS. PLEASE NOTE: A NORMAL MAMMOGRAM DOES NOT EXCLUDE THE POSSIBILITY OF BREAST CANCER. A CLINICALLY SUSPICIOUS PALPABLE LUMP SHOULD BE BIOPSIED. Dictated by: Savage Hester DO on 11/27/2024 at 15:45 Approved by: Savage Hester DO on 11/27/2024 at 15:51
--- OUTSIDE RECORDS SUMMARY | 2024-11-27 13:03 | XMS_ITS | CCD ---
Author Organization [facility] Care Team Providers Care Herpetology Teacher Name Role Phone JOSELO, DR MACK Admitting Unavailable HOY, DR MAKC Attending Unavailable HOY, DR MACK Primary Care [...] 07-0 6-2022 OCCULT BLOOD Negative Normal NEGATIVE [facility] Comment on above: Performed By: #### O BSCRN #### [facility] [address] [place] [address] Dr. Enrrique Torrez CBC AUTO DIFFon 03-24-2022 BASO # 0.1 103/ul Normal 0.0-0.1 [facility] Comment on above: Performed By: #### C BC #### [facility] [address] [place] [address] Dr. Enrrique Torrez Basophils/100 WBC (Bld) 0.7 % Normal 0.2-2.0 [facility] Comment on above: Performed By: #### C BC #### [facility] [address] [place] [address] Dr. Enrrique Torrez EO # 0.2 103/ul Normal 0.0-0.7 [facility] Comment on above: Performed By: #### C BC #### [facility] [address] [place] [address] Dr. Enrrique Torrez Eosinophils/100 WBC (Bld) 2.2 % Normal 0.9-7.0 [facility] Comment on above: Performed By: #### C BC #### [facility] [address] [place] [address] Dr. Enrrique Torrez Erythrocyte distribution width (RBC) [Ratio] 13.2 % Normal 11.0-15.0 [facility] Comment on above: Performed By: #### C BC #### [facility] [address] [place] [address] Dr. Enrrique Torrez Hematocrit (Bld) [Volume fraction] 41.2 % Normal 36.0-48.0 [facility] Comment on above: Performed By: #### C BC #### [facility] [address] [place] [address] Dr. Enrrique Torrez Hemoglobin (Bld) [Mass/Vol] 13.4 g/dL Normal 12.0-16.0 [facility] Comment on above: Performed By: #### C BC #### [facility] [address] [place] [address] Dr. Enrrique Torrez IG # 0.02 10e3/ul Normal 0.00-0.03 [facility] Comment on above: Performed By: #### C BC #### [facility] [address] [place] [address] Dr. Enrrique Torrez IG % 0.3 % Normal 0.0-0.5 [facility] Comment on above: Performed By: #### C BC #### [facility] [address] [place] [address] Dr. Enrrique Torrez LYMPH # 2.0 103/ul Normal 1.2-3.8 [facility] Comment on above: Performed By: #### C BC #### [facility] [address] [place] [address] Dr. Enrrique Torrez Lymphocytes/100 WBC (Bld) 29.4 % Normal 20.5-60.0 [facility] Comment on above: Performed By: #### C BC #### [facility] [address] [place] [address] Dr. Enrrique Torrez MANUAL DIFF REQ NO Normal [facility] Comment on above: Performed By: #### C BC #### [facility] [address] [place] [address] Dr. Enrrique Torrez MCH (RBC) [Entitic mass] 31.9 pg Normal 26.7-34.0 [facility] Comment on above: Performed By: #### C BC #### [facility] [address] [place] [address] Dr. Enrrique Torrez MCHC (RBC) [Mass/Vol] 32.5 g/dL Normal 29.9-35.2 [facility] Comment on above: Performed By: #### C BC #### [facility] [address] [place] [address] Dr. Enrrique Torrez MCV (RBC) [Entitic vol] 98.1 fL Normal 81.0-99.0 [facility] Comment on above: Performed By: #### C BC #### [facility] [address] [place] [address] Dr. Enrrique Torrez MONO # 0.6 103/ul Normal 0.3-0.8 [facility] Comment on above: Performed By: #### C BC #### [facility] [address] [place] [address] Dr. Enrrique Torrez Monocytes/100 WBC (Bld) 9.1 % Normal 1.7-12.0 [facility] Comment on above: Performed By: #### C BC #### [facility] [address] [place] [address] Dr. Enrrique Torrez NEUT # 4.0 103/ul Normal 1.4-6.5 [facility] Comment on above: Performed By: #### C BC #### [facility] [address] [place] [address] Dr. Enrrique Torrez Neutrophils/100 WBC (Bld) 58.3 % Normal 43.0-75.0 [facility] Comment on above: Performed By: #### C BC #### [facility] [address] [place] [address] Dr. Enrrique Torrez Platelet mean volume (Bld) [Entitic vol] 8.7 fL Critically low 9.5-13.5 [facility] Comment on above: Performed By: #### C BC #### [facility] [address] [place] [address] Dr. Enrrique Torrez PLT 285 103/ul Normal 150-450 [facility] Comment on above: Performed By: #### C BC #### [facility] [address] [place] [address] Dr. Enrrique Torrez RBC 4.20 106/ul Normal 4.20-5.40 [facility] Comment on above: Performed By: #### C BC #### [facility] [address] [place] [address] Dr. Enrrique Torrez WBC 6.8 103/ul Normal 4.0-11.0 [facility] Comment on above: Performed By: #### C BC #### [facility] [address] [place] [address] Dr. Enrrique Torrez FREE THYROXINE INDEX T7on FTI 2.98 Normal 1.30-4.50 [facility] Comment on above: Performed By: #### L IPID, TSH, CMP, T7 #### [facility] [address] [address] [address] Enrrique Torrez T3U 32.0 % Normal 30.0-39.0 [facility] Comment on above: Performed By: #### L IPID, TSH, CMP, T7 #### [facility] [address] [address] [address] Enrrique Torrez T4 [Mass/Vol] 9.30 ug/dL Normal 4.80-13.90 [facility] Comment on above: Performed By: #### L IPID, TSH, CMP, T7 #### [facility] [address] [place] [address] Dr. Enrrique Torrez GLYCOHEMOGLOBIN A1Con 2021 ADA RECOMMENDATION SEE BELOW Normal [facility] Comment on above: Result Comment: ADA RECOMMENDED LIMIT 4.0 - 6.0 ADA THERAPEUTIC TARGET < 7.0 ACTION SUGGESTED > 7.0 Performed By: #### A 1C #### [facility] [address] [place] [address] Dr. Enrrique Torrez Glucose [Mass/Vol] 120 mg/dL Normal [facility] Comment on above: Performed By: #### A 1C #### [facility] [address] [place] [address] Dr. Enrrique Torrez HbA1c (Bld) [Mass fraction] 5.8 % Normal 4.5-6.2 [facility] Comment on above: Performed By: #### A 1C #### [facility] [address] [place] [address] Dr. Enrrique Torrez IRONon 03-24-2022 Iron [Mass/Vol] 119.0 ug/dL Normal 50.0-170.0 [facility] Comment on above: Performed By: #### I DARIA #### [facility] [address] [place] [address] Dr. Enrrique Torrez LIPID PROFILEon 03-24-2022 CHOL-HDL RATIO NORM SEE BELOW Normal [facility] Comment on above: Result Comment: 3.3 - 4.4 LOW RISK 4.4 - 7.1 AVERAGE RISK 7.1 - 11.0 MODERATE RISK >11.0 HIGH RISK Performed By: #### L IPID, TSH, CMP, T7 #### [facility] [address] [place] [address] Dr. Enrrique Torrez Cholesterol [Mass/Vol] 165 mg/dL Normal <=200 [facility] Comment on above: Performed By: #### L IPID, TSH, CMP, T7 #### [facility] [address] [address] [address] Enrrique Torrez Cholesterol in HDL [Mass/Vol] 48 mg/dL Normal 40-60 [facility] Comment on above: Performed By: #### L IPID, TSH, CMP, T7 #### [facility] [address] [address] [address] Enrrique Torrez Cholesterol in LDL [Mass/Vol] 93.2 mg/dL Normal [facility] Comment on above: Performed By: #### L IPID, TSH, CMP, T7 #### [facility] [address] [place] [address] Dr. Enrrique Torrez Cholesterol.total/Cho lesterol in HDL [Mass ratio] 3.4 {ratio} Normal [facility] Comment on above: Performed By: #### L IPID, TSH, CMP, T7 #### [facility] [address] [place] [address] Dr. Enrrique Torrez HDL NORMAL > or = 60 mg/dl - LOW CARDIOVASCULAR RISK <40 mg/dl - HIGH CARDIOVASCULAR RISK Normal [facility] Comment on above: Performed By: #### L IPID, TSH, CMP, T7 #### [facility] [address] [address] [address] Enrrique Torrez LDL CALC NORMAL SEE BELOW Normal [facility] Comment on above: Result Comment: <100 mg/dl OPTIMAL 100 - 129 mg/dl NEAR OR ABOVE OPTIMAL 130 - 159 mg/dl BORDERLINE HIGH 160 - 189 mg/dl HIGH >190 mg/dl VERY HIGH Performed By: #### L IPID, TSH, CMP, T7 #### [facility] [address] [place] [address] Dr. Enrrique Torrez Triglyceride [Mass/Vol] 119 mg/dL Normal <=150 [facility] Comment on above: Performed By: #### L IPID, TSH, CMP, T7 #### [facility] [address] [address] [address] Enrrique Torrez VLDL CALC 23.8 mg/dL Normal [facility] Comment on above: Performed By: #### L IPID, TSH, CMP, T7 #### [facility] [address] [address] [address] Enrrique Torrez PROF 14(COMP METB)on 022 Albumin [Mass/Vol] 3.6 g/dL Normal 3.4-5.0 [facility] Comment on above: Performed By: #### L IPID, TSH, CMP, T7 #### [facility] [address] [place] [address] Dr. Enrirque Torrez Albumin/Globulin [Mass ratio] 0.9 {ratio} Normal [facility] Comment on above: Performed By: #### L IPID, TSH, CMP, T7 #### [facility] [address] [address] [address] Enrrique Torrez ALP [Catalytic activity/Vol] 66 U/L Normal 46-116 [facility] Comment on above: Performed By: #### L IPID, TSH, CMP, T7 #### [facility] [address] [place] [address] Dr. Enrrique Torrez ALT [Catalytic activity/Vol] 30 U/L Normal 14-59 [facility] Comment on above: Performed By: #### L IPID, TSH, CMP, T7 #### [facility] [address] [address] [address] Enrrique Torrez Anion gap [Moles/Vol] 14.4 mmol/L Normal [facility] Comment on above: Performed By: #### L IPID, TSH, CMP, T7 #### [facility] [address] [address] [address] Enrrique Torrez AST [Catalytic activity/Vol] 21 U/L Normal 15-37 [facility] Comment on above: Performed By: #### L IPID, TSH, CMP, T7 #### [facility] [address] [place] [address] Dr. Enrrique Torrez Bilirubin [Mass/Vol] 0.4 mg/dL Normal 0.2-1.0 [facility] Comment on above: Performed By: #### L IPID, TSH, CMP, T7 #### [facility] [address] [place] [address] Dr. Enrrique Torrez Calcium [Mass/Vol] 9.2 mg/dL Normal 8.5-10.1 [facility] Comment on above: Performed By: #### L IPID, TSH, CMP, T7 #### [facility] [address] [place] [address] Dr. Enrrique Torrez Chloride [Moles/Vol] 106 mmol/L Normal 98-107 [facility] Comment on above: Performed By: #### L IPID, TSH, CMP, T7 #### [facility] [address] [place] [address] Dr. Enrrique Torrez CO2 [Moles/Vol] 26.4 mmol/L Normal 21.0-32.0 [facility] Comment on above: Performed By: #### L IPID, TSH, CMP, T7 #### [facility] [address] [place] [address] Dr. Enrrique Torrez Creatinine [Mass/Vol] 0.88 mg/dL Normal 0.55-1.02 [facility] Comment on above: Performed By: #### L IPID, TSH, CMP, T7 #### [facility] [address] [place] [address] Dr. Enrrique Torrez EGFR-AF AUSTRIAN >60 Normal >=60 [facility] Comment on above: Performed By: #### L IPID, TSH, CMP, T7 #### [facility] [address] [place] [address] Dr. Enrrique Torrez EGFR-NON AF AUSTRIAN >60 Normal >=60 [facility] Comment on above: Performed By: #### L IPID, TSH, CMP, T7 #### [facility] [address] [place] [address] Dr. Enrrique Torrez Globulin (S) [Mass/Vol] 3.8 g/dL Normal [facility] Comment on above: Performed By: #### L IPID, TSH, CMP, T7 #### [facility] [address] [address] [address] Enrrique Torrez Glucose [Mass/Vol] 108 mg/dL Critically high 74-106 [facility] Comment on above: Performed By: #### L IPID, TSH, CMP, T7 #### [facility] [address] [address] [address] Enrrique Torrez Potassium [Moles/Vol] 4.8 mmol/L Normal 3.5-5.1 [facility] Comment on above: Performed By: #### L IPID, TSH, CMP, T7 #### [facility] [address] [place] [address] Dr. Enrrique Torrez Protein [Mass/Vol] 7.4 g/dL Normal 6.4-8.2 [facility] Comment on above: Performed By: #### L IPID, TSH, CMP, T7 #### [facility] [address] [address] [address] Enrrique Torrez Sodium [Moles/Vol] 142 mmol/L Normal 136-145 [facility] Comment on above: Performed By: #### L IPID, TSH, CMP, T7 #### [facility] [address] [place] [address] Dr. Enrrique Torrez Urea nitrogen [Mass/Vol] 17.0 mg/dL Normal 7.0-18.0 [facility] Comment on above: Performed By: #### L IPID, TSH, CMP, T7 #### [facility] [address] [place] [address] Dr. Enrrique Torrez Urea nitrogen/Creatinine [Mass ratio] 19.3 mg/mg Normal [facility] Comment on above: Performed By: #### L IPID, TSH, CMP, T7 #### [facility] [address] [place] [address] Dr. Enrrique Torrez TSHon 03-24-2022 TSH 0.863 uIU/mL Normal 0.358-3.740 [facility] Comment on above: Performed By: #### L IPID, TSH, CMP, T7 #### [facility] [address] [address] [address] Enrrique Torrez XR RIBS RT NO [...] AKBAR AMARAL Date: 2022-02-20 18:14 Normal [facility] Encounters Encounter Date Encounter Type Care Provider [...] Payer Category Payer Private Health Insurance EBM [id number] 1955 Unknown [id number] [id number] [id number] 1955 Unknown [id number] 2.16.84 [id number] 1955 Unknown [id number] 2.16.84 [id number] 1955 Unknown [id number] 2.16.84 [id number] 1955 Unknown [id number] 2.16.84 [id number] Clinical Note 07-02-2022 Note Date & Type [...] and content) DATE CREATED AUTHOR 08/11/2022 [facility] FOR RECORDS PERTAINING TO PATIENTS WHO [...] BE BASED ON THE PRIMARY CLINICAL RECORDS. [employer] provides no warranty or guarantee of the accuracy or completeness of information in this document.
--- NOTE | 2024-11-27 13:19 | CT_ITS ---
The [address] [address] Patient Name: FABIAN TEJEDA MRN: [id number] date: 1955 Sex: F Assigned Patient Location: [facility] Current Patient Location: [facility] Accession/Order Number: [id number] Exam Date: 11/27/2024 14:37 Report Date: 11/27/2024 15:00 At the request of: FREDERICK JOSUE MD Procedure: CT lung screening low-dose LOW-DOSE SCREENING CHEST CT WITHOUT CONTRAST CLINICAL DATA: Chronic smoker for over 50 years. COMPARISON: 11/16/2023 Spiral axial unenhanced low-dose images were obtained through the chest. Images were reviewed using both narrow and wide window settings. This CT exam was performed using one or more following dose reduction techniques: Automated exposure control, adjustment of the mA and/or kV according to patient size, or use of iterative reconstruction technique. The heart is normal in size. No pericardial effusion is seen. There is minimal coronary disease. No aortic aneurysm is identified. Minor plaque at the aortic arch and proximal left subclavian artery. There is similar tiny mediastinal lymph nodes. A small to moderate size hiatal hernia is again seen. There are similar degenerative changes at the spine. No consolidation, pleural effusion or pneumothorax is present. There is redemonstration of a noncalcified nodule at the left lower lobe. It currently measures approximately 7.6 x 8.5 x 9.1 mm in size. It was previously by 5.8 x 6.6 x 6.4 mm. No new nodularity is seen. Limited imaging through the upper abdomen shows no contributory findings. CT/CT lung screening low-dose IMPRESSION: HIATAL HERNIA. ENLARGING LEFT LOWER LOBE PULMONARY NODULE. SIZE MAY PRECLUDE DIAGNOSTIC PET IMAGING. FOLLOW-UP ROUTINE CT IMAGING COULD BE PERFORMED FOR BETTER ASSESSMENT. Lung RADS category 4B Pulmonary follow-up with potential additional imaging Impression dictated by: Jeannine Winkler M.D.11/27/2024 3:00 PM Dictation Location: [place] [address] Electronically authenticated by: [id number] Y Date: 11/27/2024 15:00
== END 2024-11-27 12:56 | disposition home or self-care (01) ==
LOC: MAMMO 12:55
PROVIDERS: PCP Family Medicine; Visit Provider Family Medicine
DX: Z12.31 Encounter for screening mammogram for malignant neoplasm of breast (principal); F17.200 Nicotine dependence, unspecified, uncomplicated; E55.9 Vitamin D deficiency, unspecified; R91.1 Solitary pulmonary nodule; Z80.8 Family history of malignant neoplasm of other organs or systems
CPT/HCPCS: 71271; 77063; 77067

== ENCOUNTER 2024-11-28 15:26 | Outpatient (REF) | payer OTHER, SELFPAY ==
--- OUTSIDE RECORDS SUMMARY | 2024-11-28 15:48 | XMS_ITS | CCD ---
Author Organization [facility] Care Team Providers Care Moth Exterminator Name Role Phone JOSELO, DR MACK Admitting [...] 07-0 6-2022 OCCULT BLOOD Negative Normal NEGATIVE [facility] Comment on above: Performed By: #### O BSCRN #### [facility] [address] [place] [address] Dr. Enrrique Torrez CBC AUTO DIFFon 03-24-2022 BASO # 0.1 103/ul Normal 0.0-0.1 [facility] Comment on above: Performed By: #### C BC #### [facility] [address] [place] [address] Dr. Enrrique Torrez Basophils/100 WBC (Bld) 0.7 % Normal 0.2-2.0 [facility] Comment on above: Performed By: #### C BC #### [facility] [address] [place] [address] Dr. Enrrique Torrez EO # 0.2 103/ul Normal 0.0-0.7 [facility] Comment on above: Performed By: #### C BC #### [facility] [address] [place] [address] Dr. Enrrique Torrez Eosinophils/100 WBC (Bld) 2.2 % Normal 0.9-7.0 [facility] Comment on above: Performed By: #### C BC #### [facility] [address] [place] [address] Dr. Enrrique Torrez Erythrocyte distribution width (RBC) [Ratio] 13.2 % Normal 11.0-15.0 [facility] Comment on above: Performed By: #### C BC #### [facility] [address] [place] [address] Dr. Enrrique Torrez Hematocrit (Bld) [Volume fraction] 41.2 % Normal 36.0-48.0 [facility] Comment on above: Performed By: #### C BC #### [facility] [address] [place] [address] Dr. Enrrique Torrez Hemoglobin (Bld) [Mass/Vol] 13.4 g/dL Normal 12.0-16.0 [facility] Comment on above: Performed By: #### C BC #### [facility] [address] [place] [address] Dr. Enrrique Torrez IG # 0.02 10e3/ul Normal 0.00-0.03 [facility] Comment on above: Performed By: #### C BC #### [facility] [address] [place] [address] Dr. Enrrique Torrez IG % 0.3 % Normal 0.0-0.5 [facility] Comment on above: Performed By: #### C BC #### [facility] [address] [place] [address] Dr. Enrrique Torrez LYMPH # 2.0 103/ul Normal 1.2-3.8 [facility] Comment on above: Performed By: #### C BC #### [facility] [address] [place] [address] Dr. Enrrique Torrez Lymphocytes/100 WBC (Bld) 29.4 % Normal 20.5-60.0 [facility] Comment on above: Performed By: #### C BC #### [facility] [address] [place] [address] Dr. Enrrique Torrez MANUAL DIFF REQ NO Normal [facility] Comment on above: Performed By: #### C BC #### [facility] [address] [place] [address] Dr. Enrrique Torrez MCH (RBC) [Entitic mass] 31.9 pg Normal 26.7-34.0 [facility] Comment on above: Performed By: #### C BC #### [facility] [address] [place] [address] Dr. Enrrique Torrez MCHC (RBC) [Mass/Vol] 32.5 g/dL Normal 29.9-35.2 [facility] Comment on above: Performed By: #### C BC #### [facility] [address] [place] [address] Dr. Enrrique Torrez MCV (RBC) [Entitic vol] 98.1 fL Normal 81.0-99.0 [facility] Comment on above: Performed By: #### C BC #### [facility] [address] [place] [address] Dr. Enrrique Torrez MONO # 0.6 103/ul Normal 0.3-0.8 [facility] Comment on above: Performed By: #### C BC #### [facility] [address] [place] [address] Dr. Enrrique Torrez Monocytes/100 WBC (Bld) 9.1 % Normal 1.7-12.0 [facility] Comment on above: Performed By: #### C BC #### [facility] [address] [place] [address] Dr. Enrrique Torrez NEUT # 4.0 103/ul Normal 1.4-6.5 [facility] Comment on above: Performed By: #### C BC #### [facility] [address] [place] [address] Dr. Enrrique Torrez Neutrophils/100 WBC (Bld) 58.3 % Normal 43.0-75.0 [facility] Comment on above: Performed By: #### C BC #### [facility] [address] [place] [address] Dr. Enrrique Torrez Platelet mean volume (Bld) [Entitic vol] 8.7 fL Critically low 9.5-13.5 [facility] Comment on above: Performed By: #### C BC #### [facility] [address] [place] [address] Dr. Enrrique Torrez PLT 285 103/ul Normal 150-450 [facility] Comment on above: Performed By: #### C BC #### [facility] [address] [place] [address] Dr. Enrrique Torrez RBC 4.20 106/ul Normal 4.20-5.40 [facility] Comment on above: Performed By: #### C BC #### [facility] [address] [place] [address] Dr. Enrrique Torrez WBC 6.8 103/ul Normal 4.0-11.0 [facility] Comment on above: Performed By: #### C BC #### [facility] [address] [place] [address] Dr. Enrrique Torrez FREE THYROXINE INDEX T7on FTI 2.98 Normal 1.30-4.50 [facility] Comment on above: Performed By: #### L IPID, TSH, CMP, T7 #### [facility] [address] [address] [address] Enrrique Torrez T3U 32.0 % Normal 30.0-39.0 [facility] Comment on above: Performed By: #### L IPID, TSH, CMP, T7 #### [facility] [address] [address] [address] Enrrique Torrez T4 [Mass/Vol] 9.30 ug/dL Normal 4.80-13.90 [facility] Comment on above: Performed By: #### L IPID, TSH, CMP, T7 #### [facility] [address] [place] [address] Dr. Enrrique Torrez GLYCOHEMOGLOBIN A1Con 2021 ADA RECOMMENDATION SEE BELOW Normal [facility] Comment on above: Result Comment: ADA RECOMMENDED LIMIT 4.0 - 6.0 ADA THERAPEUTIC TARGET < 7.0 ACTION SUGGESTED > 7.0 Performed By: #### A 1C #### [facility] [address] [place] [address] Dr. Enrrique Torrez Glucose [Mass/Vol] 120 mg/dL Normal [facility] Comment on above: Performed By: #### A 1C #### [facility] [address] [place] [address] Dr. Enrrique Torrez HbA1c (Bld) [Mass fraction] 5.8 % Normal 4.5-6.2 [facility] Comment on above: Performed By: #### A 1C #### [facility] [address] [place] [address] Dr. Enrrique Torrez IRONon 03-24-2022 Iron [Mass/Vol] 119.0 ug/dL Normal 50.0-170.0 [facility] Comment on above: Performed By: #### I DARIA #### [facility] [address] [place] [address] Dr. Enrrique Torrez LIPID PROFILEon 03-24-2022 CHOL-HDL RATIO NORM SEE BELOW Normal [facility] Comment on above: Result Comment: 3.3 - 4.4 LOW RISK 4.4 - 7.1 AVERAGE RISK 7.1 - 11.0 MODERATE RISK >11.0 HIGH RISK Performed By: #### L IPID, TSH, CMP, T7 #### [facility] [address] [place] [address] Dr. Enrrique Torrez Cholesterol [Mass/Vol] 165 mg/dL Normal <=200 [facility] Comment on above: Performed By: #### L IPID, TSH, CMP, T7 #### [facility] [address] [address] [address] Enrrique Torrez Cholesterol in HDL [Mass/Vol] 48 mg/dL Normal 40-60 [facility] Comment on above: Performed By: #### L IPID, TSH, CMP, T7 #### [facility] [address] [address] [address] Enrrique Torrez Cholesterol in LDL [Mass/Vol] 93.2 mg/dL Normal [facility] Comment on above: Performed By: #### L IPID, TSH, CMP, T7 #### [facility] [address] [place] [address] Dr. Enrrique Torrez Cholesterol.total/Cho lesterol in HDL [Mass ratio] 3.4 {ratio} Normal [facility] Comment on above: Performed By: #### L IPID, TSH, CMP, T7 #### [facility] [address] [place] [address] Dr. Enrrique Torrez HDL NORMAL > or = 60 mg/dl - LOW CARDIOVASCULAR RISK <40 mg/dl - HIGH CARDIOVASCULAR RISK Normal [facility] Comment on above: Performed By: #### L IPID, TSH, CMP, T7 #### [facility] [address] [address] [address] Enrrique Torrez LDL CALC NORMAL SEE BELOW Normal [facility] Comment on above: Result Comment: <100 mg/dl OPTIMAL 100 - 129 mg/dl NEAR OR ABOVE OPTIMAL 130 - 159 mg/dl BORDERLINE HIGH 160 - 189 mg/dl HIGH >190 mg/dl VERY HIGH Performed By: #### L IPID, TSH, CMP, T7 #### [facility] [address] [place] [address] Dr. Enrrique Torrez Triglyceride [Mass/Vol] 119 mg/dL Normal <=150 [facility] Comment on above: Performed By: #### L IPID, TSH, CMP, T7 #### [facility] [address] [address] [address] Enrrique Torrez VLDL CALC 23.8 mg/dL Normal [facility] Comment on above: Performed By: #### L IPID, TSH, CMP, T7 #### [facility] [address] [address] [address] Enrrique Torrez PROF 14(COMP METB)on 022 Albumin [Mass/Vol] 3.6 g/dL Normal 3.4-5.0 [facility] Comment on above: Performed By: #### L IPID, TSH, CMP, T7 #### [facility] [address] [place] [address] Dr. Enrrique Torrez Albumin/Globulin [Mass ratio] 0.9 {ratio} Normal [facility] Comment on above: Performed By: #### L IPID, TSH, CMP, T7 #### [facility] [address] [address] [address] Enrrique Torrez ALP [Catalytic activity/Vol] 66 U/L Normal 46-116 [facility] Comment on above: Performed By: #### L IPID, TSH, CMP, T7 #### [facility] [address] [place] [address] Dr. Enrrique Torrez ALT [Catalytic activity/Vol] 30 U/L Normal 14-59 [facility] Comment on above: Performed By: #### L IPID, TSH, CMP, T7 #### [facility] [address] [address] [address] Enrrique Torrez Anion gap [Moles/Vol] 14.4 mmol/L Normal [facility] Comment on above: Performed By: #### L IPID, TSH, CMP, T7 #### [facility] [address] [address] [address] Enrrique Torrez AST [Catalytic activity/Vol] 21 U/L Normal 15-37 [facility] Comment on above: Performed By: #### L IPID, TSH, CMP, T7 #### [facility] [address] [place] [address] Dr. Enrrique Torrez Bilirubin [Mass/Vol] 0.4 mg/dL Normal 0.2-1.0 [facility] Comment on above: Performed By: #### L IPID, TSH, CMP, T7 #### [facility] [address] [place] [address] Dr. Enrrique Torrez Calcium [Mass/Vol] 9.2 mg/dL Normal 8.5-10.1 [facility] Comment on above: Performed By: #### L IPID, TSH, CMP, T7 #### [facility] [address] [place] [address] Dr. Enrrique Torrez Chloride [Moles/Vol] 106 mmol/L Normal 98-107 [facility] Comment on above: Performed By: #### L IPID, TSH, CMP, T7 #### [facility] [address] [place] [address] Dr. Enrrique Torrez CO2 [Moles/Vol] 26.4 mmol/L Normal 21.0-32.0 [facility] Comment on above: Performed By: #### L IPID, TSH, CMP, T7 #### [facility] [address] [place] [address] Dr. Enrrique Torrez Creatinine [Mass/Vol] 0.88 mg/dL Normal 0.55-1.02 [facility] Comment on above: Performed By: #### L IPID, TSH, CMP, T7 #### [facility] [address] [place] [address] Dr. Enrrique Torrez EGFR-AF KENYAN >60 Normal >=60 [facility] Comment on above: Performed By: #### L IPID, TSH, CMP, T7 #### [facility] [address] [place] [address] Dr. Enrrique Torrez EGFR-NON AF KENYAN >60 Normal >=60 [facility] Comment on above: Performed By: #### L IPID, TSH, CMP, T7 #### [facility] [address] [place] [address] Dr. Enrrique Torrez Globulin (S) [Mass/Vol] 3.8 g/dL Normal [facility] Comment on above: Performed By: #### L IPID, TSH, CMP, T7 #### [facility] [address] [address] [address] Enrrique Torrez Glucose [Mass/Vol] 108 mg/dL Critically high 74-106 [facility] Comment on above: Performed By: #### L IPID, TSH, CMP, T7 #### [facility] [address] [address] [address] Enrrique Torrez Potassium [Moles/Vol] 4.8 mmol/L Normal 3.5-5.1 [facility] Comment on above: Performed By: #### L IPID, TSH, CMP, T7 #### [facility] [address] [place] [address] Dr. Enrrique Torrez Protein [Mass/Vol] 7.4 g/dL Normal 6.4-8.2 [facility] Comment on above: Performed By: #### L IPID, TSH, CMP, T7 #### [facility] [address] [address] [address] Enrrique Torrez Sodium [Moles/Vol] 142 mmol/L Normal 136-145 [facility] Comment on above: Performed By: #### L IPID, TSH, CMP, T7 #### [facility] [address] [place] [address] Dr. Enrrique Torrez Urea nitrogen [Mass/Vol] 17.0 mg/dL Normal 7.0-18.0 [facility] Comment on above: Performed By: #### L IPID, TSH, CMP, T7 #### [facility] [address] [place] [address] Dr. Enrrique Torrez Urea nitrogen/Creatinine [Mass ratio] 19.3 mg/mg Normal [facility] Comment on above: Performed By: #### L IPID, TSH, CMP, T7 #### [facility] [address] [place] [address] Dr. Enrrique Torrez TSHon 03-24-2022 TSH 0.863 uIU/mL Normal 0.358-3.740 [facility] Comment on above: Performed By: #### L IPID, TSH, CMP, T7 #### [facility] [address] [address] [address] Enrrique Torrez XR RIBS RT NO [...] AKBAR AMARAL Date: 2022-02-20 18:14 Normal [facility] Encounters Encounter Date Encounter Type Care Provider Facility Start: 08-04-2022 ambulatory JONG Lorenz y:[facility] Start: 07-02-2022 End: 07-03-[address] FREDERICK JOSUE Facility:[facility] Start: 03-29-2022 Encounter for genera l adult medical examination without abnormal findings DR FREDERICK JOSUE [facility] Start: 03-25-2022 End: 03-25-[address] FREDERICK JOSUE Facility:[facility] Start: 03-25-2022 End: 03-25-2022 Encounter for general adult medical examination without abnormal findings DR FREDERICK JOSUE Facility:[facility] Start: 03-24-2022 End: 03-25-[address] FREDERICK JOSUE Facility:[facility] Start: 02-20-2022 End: 02-21-[address] FREDERICK JOSUE Facility:[facility] Payers Date Payer Category Payer Private Health Insurance EBM [id number] 1955 Unknown [id number] [id number] [id number] 1955 Unknown [id number] [id number] [id number] 1955 Unknown [id number] [id number] [id number] 1955 Unknown [id number] [id number] [id number] 1955 Unknown [id number] [id number] [id number] Clinical Note 07-02-2022 Note Date & Type [...] authenticated by: JEWELS NAGEL Date: 2022-07-02 18:46 [facility] Summary Purpose Family History No Family History Records Found Advance Directives No Advanced Directives Records Found Additional Source Comments INFORMATION SOURCE (unrecogn ized section and content) DATE CREATED AUTHOR 08/11/2022 [facility] FOR RECORDS PERTAINING TO PATIENTS WHO [...] BE BASED ON THE PRIMARY CLINICAL RECORDS. Written. provides no warranty or guarantee of the accuracy or completeness of information in this document.
[2024-11-28 15:50] LABS: Internal Control Within Normal Limits; Occult Blood Positive
== END 2024-11-28 15:27 | disposition home or self-care (01) ==
LOC: LAB 15:26
PROVIDERS: PCP Family Medicine; Visit Provider Family Medicine
DX: E55.9 Vitamin D deficiency, unspecified (principal); E78.00 Pure hypercholesterolemia, unspecified; F17.200 Nicotine dependence, unspecified, uncomplicated; I10 Essential (primary) hypertension; R73.09 Other abnormal glucose; Z12.12 Encounter for screening for malignant neoplasm of rectum; D64.9 Anemia, unspecified
CPT/HCPCS: G0328

== ENCOUNTER 2024-12-07 08:56 | Outpatient (OUT) | payer OTHER, SELFPAY ==
[2024-12-07 09:12] LABS: Estimated GFR (African America >60 (>=60 mL/min/1.73m^2); Estimated GFR (Non-African Ame >60 (>=60 mL/min/1.73m^2)
--- OUTSIDE RECORDS SUMMARY | 2024-12-07 09:15 | XMS_ITS | CCD ---
Author Organization [facility] Care Team Providers Care Nib Assembler Name Role Phone JOSELO, DR MACK Admitting [...] 07-0 6-2022 OCCULT BLOOD Negative Normal NEGATIVE [facility] Comment on above: Performed By: #### O BSCRN #### [facility] [address] [place] [address] Dr. Enrrique Torrez CBC AUTO DIFFon 03-24-2022 BASO # 0.1 103/ul Normal 0.0-0.1 [facility] Comment on above: Performed By: #### C BC #### [facility] [address] [place] [address] Dr. Enrrique Torrez Basophils/100 WBC (Bld) 0.7 % Normal 0.2-2.0 [facility] Comment on above: Performed By: #### C BC #### [facility] [address] [place] [address] Dr. Enrrique Torrez EO # 0.2 103/ul Normal 0.0-0.7 [facility] Comment on above: Performed By: #### C BC #### [facility] [address] [place] [address] Dr. Enrrique Torrez Eosinophils/100 WBC (Bld) 2.2 % Normal 0.9-7.0 [facility] Comment on above: Performed By: #### C BC #### [facility] [address] [place] [address] Dr. Enrrique Torrez Erythrocyte distribution width (RBC) [Ratio] 13.2 % Normal 11.0-15.0 [facility] Comment on above: Performed By: #### C BC #### [facility] [address] [place] [address] Dr. Enrrique Torrez Hematocrit (Bld) [Volume fraction] 41.2 % Normal 36.0-48.0 [facility] Comment on above: Performed By: #### C BC #### [facility] [address] [place] [address] Dr. Enrrique Torrez Hemoglobin (Bld) [Mass/Vol] 13.4 g/dL Normal 12.0-16.0 [facility] Comment on above: Performed By: #### C BC #### [facility] [address] [place] [address] Dr. Enrrique Torrez IG # 0.02 10e3/ul Normal 0.00-0.03 [facility] Comment on above: Performed By: #### C BC #### [facility] [address] [place] [address] Dr. Enrrique Torrez IG % 0.3 % Normal 0.0-0.5 [facility] Comment on above: Performed By: #### C BC #### [facility] [address] [place] [address] Dr. Enrrique Torrez LYMPH # 2.0 103/ul Normal 1.2-3.8 [facility] Comment on above: Performed By: #### C BC #### [facility] [address] [place] [address] Dr. Enrrique Torrez Lymphocytes/100 WBC (Bld) 29.4 % Normal 20.5-60.0 [facility] Comment on above: Performed By: #### C BC #### [facility] [address] [place] [address] Dr. Enrrique Torrez MANUAL DIFF REQ NO Normal [facility] Comment on above: Performed By: #### C BC #### [facility] [address] [place] [address] Dr. Enrrique Torrez MCH (RBC) [Entitic mass] 31.9 pg Normal 26.7-34.0 [facility] Comment on above: Performed By: #### C BC #### [facility] [address] [place] [address] Dr. Enrrique Torrez MCHC (RBC) [Mass/Vol] 32.5 g/dL Normal 29.9-35.2 [facility] Comment on above: Performed By: #### C BC #### [facility] [address] [place] [address] Dr. Enrrique Torrez MCV (RBC) [Entitic vol] 98.1 fL Normal 81.0-99.0 [facility] Comment on above: Performed By: #### C BC #### [facility] [address] [place] [address] Dr. Enrrique Torrez MONO # 0.6 103/ul Normal 0.3-0.8 [facility] Comment on above: Performed By: #### C BC #### [facility] [address] [place] [address] Dr. Enrrique Torrez Monocytes/100 WBC (Bld) 9.1 % Normal 1.7-12.0 [facility] Comment on above: Performed By: #### C BC #### [facility] [address] [place] [address] Dr. Enrrique Torrez NEUT # 4.0 103/ul Normal 1.4-6.5 [facility] Comment on above: Performed By: #### C BC #### [facility] [address] [place] [address] Dr. Enrrique Torrez Neutrophils/100 WBC (Bld) 58.3 % Normal 43.0-75.0 [facility] Comment on above: Performed By: #### C BC #### [facility] [address] [place] [address] Dr. Enrrique Torrez Platelet mean volume (Bld) [Entitic vol] 8.7 fL Critically low 9.5-13.5 [facility] Comment on above: Performed By: #### C BC #### [facility] [address] [place] [address] Dr. Enrrique Torrez PLT 285 103/ul Normal 150-450 [facility] Comment on above: Performed By: #### C BC #### [facility] [address] [place] [address] Dr. Enrrique Torrez RBC 4.20 106/ul Normal 4.20-5.40 [facility] Comment on above: Performed By: #### C BC #### [facility] [address] [place] [address] Dr. Enrrique Torrez WBC 6.8 103/ul Normal 4.0-11.0 [facility] Comment on above: Performed By: #### C BC #### [facility] [address] [place] [address] Dr. Enrrique Torrez FREE THYROXINE INDEX T7on FTI 2.98 Normal 1.30-4.50 [facility] Comment on above: Performed By: #### L IPID, TSH, CMP, T7 #### [facility] [address] [address] [address] Enrrique Torrez T3U 32.0 % Normal 30.0-39.0 [facility] Comment on above: Performed By: #### L IPID, TSH, CMP, T7 #### [facility] [address] [address] [address] Enrrique Torrez T4 [Mass/Vol] 9.30 ug/dL Normal 4.80-13.90 [facility] Comment on above: Performed By: #### L IPID, TSH, CMP, T7 #### [facility] [address] [place] [address] Dr. Enrrique Torrez GLYCOHEMOGLOBIN A1Con 2021 ADA RECOMMENDATION SEE BELOW Normal [facility] Comment on above: Result Comment: ADA RECOMMENDED LIMIT 4.0 - 6.0 ADA THERAPEUTIC TARGET < 7.0 ACTION SUGGESTED > 7.0 Performed By: #### A 1C #### [facility] [address] [place] [address] Dr. Enrrique Torrez Glucose [Mass/Vol] 120 mg/dL Normal [facility] Comment on above: Performed By: #### A 1C #### [facility] [address] [place] [address] Dr. Enrrique Torrez HbA1c (Bld) [Mass fraction] 5.8 % Normal 4.5-6.2 [facility] Comment on above: Performed By: #### A 1C #### [facility] [address] [place] [address] Dr. Enrrique Torrez IRONon 03-24-2022 Iron [Mass/Vol] 119.0 ug/dL Normal 50.0-170.0 [facility] Comment on above: Performed By: #### I DARIA #### [facility] [address] [place] [address] Dr. Enrrique Torrez LIPID PROFILEon 03-24-2022 CHOL-HDL RATIO NORM SEE BELOW Normal [facility] Comment on above: Result Comment: 3.3 - 4.4 LOW RISK 4.4 - 7.1 AVERAGE RISK 7.1 - 11.0 MODERATE RISK >11.0 HIGH RISK Performed By: #### L IPID, TSH, CMP, T7 #### [facility] [address] [place] [address] Dr. Enrrique Torrez Cholesterol [Mass/Vol] 165 mg/dL Normal <=200 [facility] Comment on above: Performed By: #### L IPID, TSH, CMP, T7 #### [facility] [address] [address] [address] Enrrique Torrez Cholesterol in HDL [Mass/Vol] 48 mg/dL Normal 40-60 [facility] Comment on above: Performed By: #### L IPID, TSH, CMP, T7 #### [facility] [address] [address] [address] Enrrique Torrez Cholesterol in LDL [Mass/Vol] 93.2 mg/dL Normal [facility] Comment on above: Performed By: #### L IPID, TSH, CMP, T7 #### [facility] [address] [place] [address] Dr. Enrrique Torrez Cholesterol.total/Cho lesterol in HDL [Mass ratio] 3.4 {ratio} Normal [facility] Comment on above: Performed By: #### L IPID, TSH, CMP, T7 #### [facility] [address] [place] [address] Dr. Enrrique Torrez HDL NORMAL > or = 60 mg/dl - LOW CARDIOVASCULAR RISK <40 mg/dl - HIGH CARDIOVASCULAR RISK Normal [facility] Comment on above: Performed By: #### L IPID, TSH, CMP, T7 #### [facility] [address] [address] [address] Enrrique Torrez LDL CALC NORMAL SEE BELOW Normal [facility] Comment on above: Result Comment: <100 mg/dl OPTIMAL 100 - 129 mg/dl NEAR OR ABOVE OPTIMAL 130 - 159 mg/dl BORDERLINE HIGH 160 - 189 mg/dl HIGH >190 mg/dl VERY HIGH Performed By: #### L IPID, TSH, CMP, T7 #### [facility] [address] [place] [address] Dr. Enrrique Torrez Triglyceride [Mass/Vol] 119 mg/dL Normal <=150 [facility] Comment on above: Performed By: #### L IPID, TSH, CMP, T7 #### [facility] [address] [address] [address] Enrrique Torrez VLDL CALC 23.8 mg/dL Normal [facility] Comment on above: Performed By: #### L IPID, TSH, CMP, T7 #### [facility] [address] [address] [address] Enrrique Torrez PROF 14(COMP METB)on 022 Albumin [Mass/Vol] 3.6 g/dL Normal 3.4-5.0 [facility] Comment on above: Performed By: #### L IPID, TSH, CMP, T7 #### [facility] [address] [place] [address] Dr. Enrrique Torrez Albumin/Globulin [Mass ratio] 0.9 {ratio} Normal [facility] Comment on above: Performed By: #### L IPID, TSH, CMP, T7 #### [facility] [address] [address] [address] Enrrique Torrez ALP [Catalytic activity/Vol] 66 U/L Normal 46-116 [facility] Comment on above: Performed By: #### L IPID, TSH, CMP, T7 #### [facility] [address] [place] [address] Dr. Enrrique Torrez ALT [Catalytic activity/Vol] 30 U/L Normal 14-59 [facility] Comment on above: Performed By: #### L IPID, TSH, CMP, T7 #### [facility] [address] [address] [address] Ernrique Torrez Anion gap [Moles/Vol] 14.4 mmol/L Normal [facility] Comment on above: Performed By: #### L IPID, TSH, CMP, T7 #### [facility] [address] [address] [address] Enrrique Torrez AST [Catalytic activity/Vol] 21 U/L Normal 15-37 [facility] Comment on above: Performed By: #### L IPID, TSH, CMP, T7 #### [facility] [address] [place] [address] Dr. Enrrique Torrez Bilirubin [Mass/Vol] 0.4 mg/dL Normal 0.2-1.0 [facility] Comment on above: Performed By: #### L IPID, TSH, CMP, T7 #### [facility] [address] [place] [address] Dr. Enrrique Torrez Calcium [Mass/Vol] 9.2 mg/dL Normal 8.5-10.1 [facility] Comment on above: Performed By: #### L IPID, TSH, CMP, T7 #### [facility] [address] [place] [address] Dr. Enrrique Torrez Chloride [Moles/Vol] 106 mmol/L Normal 98-107 [facility] Comment on above: Performed By: #### L IPID, TSH, CMP, T7 #### [facility] [address] [place] [address] Dr. Enrrique Torrez CO2 [Moles/Vol] 26.4 mmol/L Normal 21.0-32.0 [facility] Comment on above: Performed By: #### L IPID, TSH, CMP, T7 #### [facility] [address] [place] [address] Dr. Enrrique Torrez Creatinine [Mass/Vol] 0.88 mg/dL Normal 0.55-1.02 [facility] Comment on above: Performed By: #### L IPID, TSH, CMP, T7 #### [facility] [address] [place] [address] Dr. Enrrique Torrez EGFR-AF SWEDISH >60 Normal >=60 [facility] Comment on above: Performed By: #### L IPID, TSH, CMP, T7 #### [facility] [address] [place] [address] Dr. Enrrique Torrez EGFR-NON AF SWEDISH >60 Normal >=60 [facility] Comment on above: Performed By: #### L IPID, TSH, CMP, T7 #### [facility] [address] [place] [address] Dr. Enrrique Torrez Globulin (S) [Mass/Vol] 3.8 g/dL Normal [facility] Comment on above: Performed By: #### L IPID, TSH, CMP, T7 #### [facility] [address] [address] [address] Enrrique Torrez Glucose [Mass/Vol] 108 mg/dL Critically high 74-[address] [facility] Comment on above: Performed By: #### L IPID, TSH, CMP, T7 #### [facility] [address] [address] [address] Enrrique Torrez Potassium [Moles/Vol] 4.8 mmol/L Normal 3.5-5.1 [facility] Comment on above: Performed By: #### L IPID, TSH, CMP, T7 #### [facility] [address] [place] [address] Dr. Enrrique Torrez Protein [Mass/Vol] 7.4 g/dL Normal 6.4-8.2 [facility] Comment on above: Performed By: #### L IPID, TSH, CMP, T7 #### [facility] [address] [address] [address] Enrrique Torrez Sodium [Moles/Vol] 142 mmol/L Normal 136-145 [facility] Comment on above: Performed By: #### L IPID, TSH, CMP, T7 #### [facility] [address] [place] [address] Dr. Enrrique Torrez Urea nitrogen [Mass/Vol] 17.0 mg/dL Normal 7.0-18.0 [facility] Comment on above: Performed By: #### L IPID, TSH, CMP, T7 #### [facility] [address] [place] [address] Dr. Enrrique Torrez Urea nitrogen/Creatinine [Mass ratio] 19.3 mg/mg Normal [facility] Comment on above: Performed By: #### L IPID, TSH, CMP, T7 #### [facility] [address] [place] [address] Dr. Enrrique Torrez TSHon 03-24-2022 TSH 0.863 uIU/mL Normal 0.358-3.[address] [facility] Comment on above: Performed By: #### L IPID, TSH, CMP, T7 #### [facility] [address] [address] [address] Enrrique Torrez XR RIBS RT NO [...] AKBAR AMARAL Date: 2022-02-20 18:14 Normal [facility] Encounters Encounter Date Encounter Type Care Provider Facility Start: 08-04-2022 ambulatory JONG Lorenz y:[facility] Start: 07-02-2022 End: 07-03-[address] FREDERICK JOSUE Facility:[facility] Start: 03-29-2022 Encounter for genera l adult medical examination without abnormal findings DR FREDERICK JOSUE [facility] Start: 03-25-2022 End: 03-25-[address] FREDERICK JOSUE Facility:[facility] Start: 03-25-2022 End: 03-25-2022 Encounter for general adult medical examination without abnormal findings DR FREDERICK JOSUE Facility:[facility] Start: 03-24-2022 End: 03-25-[address] FREDERICK JOSUE Facility:[facility] Start: 02-20-2022 End: 02-21-[address] FREDERICK JOSUE Facility:[facility] Payers Date Payer Category Payer Private Health Insurance [employer] [id number] 1955 Unknown [id number] [id number] [id number] 1955 Unknown [id number] 2.16.84 [id number] 1955 Unknown [id number] 2.16.84 [id number] 1955 Unknown [id number] 2.16.84 [id number] 1955 Unknown [id number] 2.16.84 [id number] Clinical Note 07-02-2022 Note Date & Type [...] authenticated by: JEWELS NAGEL Date: 2022-07-02 18:46 [facility] Summary Purpose Family History No Family History Records Found Advance Directives No Advanced Directives Records Found Additional Source Comments INFORMATION SOURCE (unrecogn ized section and content) DATE CREATED AUTHOR 08/11/2022 [facility] FOR RECORDS PERTAINING TO PATIENTS WHO ARE [...] BE BASED ON THE PRIMARY CLINICAL RECORDS. [employer] provides no warranty or guarantee of the accuracy or completeness of information in this document.
== END 2024-12-07 08:57 | disposition home or self-care (01) ==
LOC: LAB 08:56
PROVIDERS: PCP Family Medicine; Visit Provider Family Medicine
DX: R91.1 Solitary pulmonary nodule (principal)
CPT/HCPCS: 36415; 71260; 82565; Q9967